=== PATIENT | female | born 1980 | race Caucasian/White ===

== ENCOUNTER 2021-05-05 10:43 | Outpatient (CLI) | payer OTHER, SELFPAY ==
--- NOTE | ~2021-05-05 | MM_ITS ---
EXAMINATION: MM screening sapp[facility] BI w marie HISTORY: Screening mammogram TECHNIQUE: Craniocaudal and mediolateral oblique 3-D tomosynthesis images were obtained and synthetic 2-D images were generated. CAD analysis was submitted and interpreted. COMPARISON: No prior mammogram is available for comparison at this institution. BREAST PARENCHYMAL COMPOSITION: The breasts are heterogeneously dense, which may obscure small masses . FINDINGS: There is no suspicious mass, calcification, or architectural distortion to suggest malignan cy in either breast. IMPRESSION: 1. No mammographic evidence of malignancy. 2. Recommend routine screening mammography in one year. BI-RADS Category 1: Negative Reviewed, dictated and finalized at location A.
== END 2021-05-05 10:44 | disposition home or self-care (01) ==
LOC: ANHIMG 10:46
PROVIDERS: PCP Family Medicine; Visit Provider Physician Assistant Medical
DX: Z12.31 Encounter for screening mammogram for malignant neoplasm of breast (principal)
CPT/HCPCS: 77063; 77067

== ENCOUNTER 2021-12-20 08:04 | Emergency (ER) | payer OTHER, SELFPAY ==
--- NOTE | ~2021-12-20 | CT_ITS ---
EXAMINATION: CT abdomen pelvis wo con DATE: 12/20/2021 08:35 INDICATION: Left flank pain. TECHNIQUE: Computed tomography (CT) of the abdomen and pelvis was performed without intravenous contr ast. Automated exposure control and iterative reconstruction technique were employed. The dose-length product was 389.98 mGy-cm. COMPARISON: CT abdomen and pelvis 12/29/2016 FINDINGS: The visualized portions of the lung bases posteriorly mild atelectasis. No pleural effusion . The heart size is normal. No pericardial effusion. The liver, gallbladder, spleen, pancreas, adrena l glands, and kidneys are normal. There is no urolithiasis. There are no dilated loops of bowel. The appendix is normal. There are no pathologically enlarged lymph nodes. There is no free intraperitonea l fluid. There is mild lumbar spondylosis. IMPRESSION: 1. No etiology for the patient's symptoms. Reviewed, dictated and finalized at location A.
--- NOTE | ~2021-12-20 | US_ITS ---
EXAMINATION: US pelvic complete DATE: 12/20/2021 09:20 INDICATION: Left lower quadrant abdominal pain. TECHNIQUE: Multiple transabdominal sonographic images of the pelvis were obtained. COMPARISON: CT abdomen and pelvis 12/20/2021 FINDINGS: The uterus measures 9.8 x 5.9 x 7.1 cm. There is no free fluid in the pelvis. The endometrial complex measures 9 mm in thickness. The right ovary measures 2.7 x 1.9 x 2.1 cm. The left ovary measures 2.4 x 1.5 x 2.6 cm. There is normal vascular flow in the ovaries. IMPRESSION: 1. Normal pelvis. Reviewed, dictated and finalized at location A. IMPRESSION: 1. Normal pelvis.
[2021-12-20 08:08] VITALS: BP 180/92; PULSE 82; RESP 18; TEMP 36.2; O2SAT 99
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
[2021-12-20] MEDS: ACETAMINOPHEN 500 MG TABLET 1000 MG PO (08:23)
[2021-12-20] MEDS: SODIUM CHLORIDE 0.9% IV 1,000 ML 999 ML IV CONT (08:23)
[2021-12-20] MEDS: ONDANSETRON INJ 4 MG/2 ML VIAL IV PUSH (08:24)
[2021-12-20 08:33] LABS: Basophils Absolute Auto 0.1 K/mm3 (0.0-0.1); Basophils Percent Auto 0.9 % (0.2-1.2); Eosinophils Absolute Auto 0.1 K/mm3 (0-0.3); Eosinophils Percent Auto 0.8 % (0-4.4); Hematocrit 41.4 % (37.0-47.0); Hemoglobin 13.3 g/dL (12.0-15.0); Immature Granulocyte Absolute 0.02 K/mm3 (0.00-0.031); Immature Granulocyte Percent A 0.3 % (0-0.5); Lymphocytes Absolute Auto 1.68 K/mm3 (0.9-3.2); Lymphocytes Percent Auto 21.3 % (18.3-44.2); Mean Corpuscular HGB Conc 32.1 g/dl (32-36); Mean Corpuscular Hemoglobin 29.4 pg (26-34); Mean Corpuscular Volume 91.4 fl (80-100); Mean Platelet Volume 10.6 fl (7.4-10.4); Monocytes Absolute Auto 0.6 K/mm3 (0.1-0.6); Monocytes Percent Auto 7.2 % (2.6-8.5); Neutrophils Absolute Auto 5.5 K/mm3 (1.3-6.7); Neutrophils Percent Auto 69.5 % (45.5-73.1); Platelet Count Result 272 k/mm3 (150-375); Red Blood Count 4.53 M/mm3 (4.2-5.4); Red Cell Distribution Width 12.6 % (11.5-14.5); White Blood Count 7.9 K/mm3 (4.5-10.0)
[2021-12-20 08:47] LABS: Alanine Aminotransferase 18 U/L (6-35); Albumin Level 4.6 g/dL (3.5-5.1); Alkaline Phosphatase 81 U/L (38-126); Anion Gap 15 mmol/L (8-16); Aspartate Amino Transferase 22 U/L (14-36); Bilirubin,Total 0.4 mg/dL (0.2-1.3); Blood Urea Nitrogen 17 mg/dL (7-17); Calcium 8.8 mg/dL (8.4-10.2); Carbon Dioxide 25 mmol/L (22-30); Chloride 101 mmol/L (98-107); Estimated CRCL calculation 84 ml/min; Estimated Glomerular Filt Rate > 60; Glucose 112 mg/dL (65-110); Lipase 51 U/L (23-300); Potassium 3.6 mmol/L (3.4-5.0); Sodium 141 mmol/L (137-145)
[2021-12-20 09:01] LABS: Appearance Urine Clear (Clear); Bilirubin Urine 1+ (Negative); Blood Urine Negative (Negative); Color Urine Yellow (Yellow); Glucose Urine UA Negative (Negative); Ketones Urine Trace mg/dL (Negative); Leukocyte Esterase Ur Negative LEU/UL (Negative); Nitrate Urine Negative (Negative); Protein Urine Trace mg/dL (Negative); Urobilinogen Urine 0.2 mg/dL (<2.0)
[2021-12-20 09:12] LABS: Hyaline Casts Urine 30-49 /lpf; Mucus Urine Moderate /lpf; RBC Urine 0-2 /hpf (0-2); Squamous Epithelial Cell Urine Rare /hpf (Few)
[2021-12-20 09:13] LABS: Add Urine Microscopic? YES
--- NOTE | 2022-01-03 09:49 | PC.NURSE ---
LATE ENTRY This note is being entered to document information to the patient's record. The following information was omitted on [12/20/21], by [Shanice SAMUEL]. NS stop time is 0915am.
== END 2021-12-20 10:05 | disposition home or self-care (01) ==
PROVIDERS: Emergency Provider Emergency Medicine; PCP Family Medicine
DX: N93.8 Other specified abnormal uterine and vaginal bleeding (principal); I10 Essential (primary) hypertension; Z87.440 Personal history of urinary (tract) infections; Z87.442 Personal history of urinary calculi; Z77.22 Contact with and (suspected) exposure to environmental tobacco smoke (acute) (chronic)
CPT/HCPCS: 36415; 74176; 76856; 80053; 81001; 81025; 83690; 85025; 87077; 87086; 87088; 96361; 96374; 99284; A9270; J2405; J7030

== ENCOUNTER 2022-03-19 19:15 | Emergency (ER) | payer OTHER, SELFPAY ==
[2022-03-19] VITALS (7 sets, daily range): BP systolic 157–179; BP diastolic 99–116; PULSE 70–92; RESP 11–19; TEMP 36.3; O2SAT 97–100
--- NOTE | ~2022-03-19 | XR_ITS ---
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 RESULT: Lines, tubes, and devices: None. Lungs and pleura: Clear. Cardiomediastinal silhouette: Stable. Other: No acute osseous or upper abdominal finding. IMPRESSION: No acute cardiopulmonary process. Reviewed, dictated and finalized at location K. L PADDER
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
--- NOTE | 2022-03-19 19:40 | ECG_ITS ---
Measurements Intervals [place] Rate: 75 P: 47 DE: 161 QRS: 3 QRSD: 88 T: -11 QT: 426 QTc: 477 Interpretive Statements SINUS RHYTHM BORDERLINE T WAVE ABNORMALITY- INFERIOR LEADS BORDERLINE ECG NO PREVIOUS ECG AVAILABLE FOR COMPARISON Electronically Signed On 03-20-2022 6:46:54 CUTTING INSPECTOR by Juan Kaplan D.O.
[2022-03-19 19:54] LABS: Basophils Absolute Auto 0.1 K/mm3 (0.0-0.1); Basophils Percent Auto 0.8 % (0.2-1.2); Eosinophils Absolute Auto 0.1 K/mm3 (0-0.3); Eosinophils Percent Auto 1.4 % (0-4.4); Hematocrit 41.4 % (37.0-47.0); Hemoglobin 13.4 g/dL (12.0-15.0); Immature Granulocyte Absolute 0.03 K/mm3 (0.00-0.031); Immature Granulocyte Percent A 0.3 % (0-0.5); Mean Corpuscular HGB Conc 32.4 g/dl (32-36); Mean Corpuscular Hemoglobin 29.2 pg (26-34); Mean Corpuscular Volume 90.2 fl (80-100); Mean Platelet Volume 10.6 fl (7.4-10.4); Monocytes Absolute Auto 0.6 K/mm3 (0.1-0.6); Monocytes Percent Auto 6.6 % (2.6-8.5); Neutrophils Absolute Auto 5.9 K/mm3 (1.3-6.7); Neutrophils Percent Auto 67.9 % (45.5-73.1); Platelet Count Result 325 k/mm3 (150-375); Red Blood Count 4.59 M/mm3 (4.2-5.4); Red Cell Distribution Width 12.6 % (11.5-14.5); White Blood Count 8.7 K/mm3 (4.5-10.0)
[2022-03-19] MEDS: SODIUM CHLORIDE 0.9% IV 1,000 ML 999 ML IV CONT (20:13)
[2022-03-19] MEDS: KETOROLAC 15 MG/ML VIAL (*BKC) IV PUSH (20:13)
[2022-03-19] MEDS: PROCHLORPERAZINE EDISYLATE 10 MG/2 ML VIAL IV PUSH (20:14)
[2022-03-19] MEDS: diphenhydrAMINE HCl INJ 50 MG/ML VIAL 25 MG IV PUSH (20:14)
[2022-03-19 21:42] LABS: Alanine Aminotransferase 18 U/L (6-35); Albumin Level 3.8 g/dL (3.5-5.1); Alkaline Phosphatase 78 U/L (38-126); Anion Gap 6 mmol/L (8-16); Aspartate Amino Transferase 22 U/L (14-36); Bilirubin,Total 0.4 mg/dL (0.2-1.3); Blood Urea Nitrogen 12 mg/dL (7-17); Calcium 7.9 mg/dL (8.4-10.2); Carbon Dioxide 24 mmol/L (22-30); Chloride 110 mmol/L (98-107); Estimated CRCL calculation 78 ml/min; Estimated Glomerular Filt Rate > 60; Glucose 97 mg/dL (65-110); Potassium 3.5 mmol/L (3.4-5.0); Sodium 140 mmol/L (137-145)
[2022-03-19 21:53] LABS: Troponin I < 0.012 ng/mL (0.000-0.034)
== END 2022-03-19 22:26 | disposition home or self-care (01) ==
PROVIDERS: Emergency Provider Emergency Medicine; PCP Family Medicine
DX: R51.9 Headache, unspecified (principal); I10 Essential (primary) hypertension; E83.51 Hypocalcemia; Z87.440 Personal history of urinary (tract) infections; Z77.22 Contact with and (suspected) exposure to environmental tobacco smoke (acute) (chronic); R94.31 Abnormal electrocardiogram [ECG] [EKG]
CPT/HCPCS: 36415; 71046; 80053; 84484; 85025; 93005; 96361; 96374; 96375; 99284; J0780; J1200; J1885; J7030

== ENCOUNTER 2024-02-07 15:30 | Emergency (ER) | payer BC, SELFPAY ==
[2024-02-07] VITALS (10 sets, daily range): BP systolic 132–162; BP diastolic 86–109; PULSE 69–85; RESP 10–111; TEMP 36.7; O2SAT 98–100
--- NOTE | ~2024-02-07 | CT_ITS ---
EXAMINATION: CT brain wo con DATE: 02/07/2024 15:49 INDICATION: Migraine headache. Blurry vision. TECHNIQUE: Computed tomography (CT) of the head was performed without intravenous contrast. The mA wa s adjusted according to patient size. Iterative reconstruction technique was employed. The dose-lengt h product was 605.33 mGy-cm. COMPARISON: Head CT 07/15/2017 FINDINGS: There is no intracranial hemorrhage, acute infarction, or abnormal intracranial mass lesion . The ventricles are normal in size. The orbits are normal. The paranasal sinuses are clear. The mast oid air cells are normal. IMPRESSION: 1. Normal brain. Reviewed, dictated and finalized at location A. DIRECTOR IMPRESSION: 1. Normal brain.
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
[2024-02-07] MEDS: KETOROLAC 30 MG/ML VIAL (*BKC) IV PUSH (17:01)
[2024-02-07] MEDS: diphenhydrAMINE HCl INJ 50 MG/ML VIAL 25 MG IV PUSH (17:01)
[2024-02-07] MEDS: METOCLOPRAMIDE HCL INJ 10 MG/2 ML VIAL IV PUSH (17:01)
[2024-02-07] MEDS: SODIUM CHLORIDE 0.9% IV 1,000 ML 999 ML IV CONT (17:01)
[2024-02-07] MEDS: ACETAMINOPHEN 500 MG TABLET 1000 MG PO (17:01)
== END 2024-02-07 18:44 | disposition home or self-care (01) ==
PROVIDERS: Emergency Provider Physician Assistant; PCP Physician Assistant
DX: G43.909 Migraine, unspecified, not intractable, without status migrainosus (principal); I10 Essential (primary) hypertension; Z87.891 Personal history of nicotine dependence; Z79.899 Other long term (current) drug therapy
CPT/HCPCS: 70450; 96361; 96374; 96375; 99284; A9270; J1200; J1885; J2765; J7030

== ENCOUNTER 2024-12-29 11:37 | Outpatient (CLI) | payer OTHER, SELFPAY ==
--- NOTE | 2024-12-29 12:00 | ECG_ITS ---
Test Date: 2024-12-29 12:11:09 Measurements Intervals [place] Rate: 80 P: 52 SC: 153 QRS: 4 QRSD: 81 T: -5 QT: 364 QTc: 421 Interpretive Statements SINUS RHYTHM LOW QRS VOLTAGE IN PRECORDIAL LEADS [QRS DEFLECTION < 1.0 mV IN CHEST LEADS] No previous ECG available for comparison Electronically Signed On 12-29-2024 18:06:50 CONFIGURATION MANAGER by Jasmine Agustin M.D.
--- OUTSIDE RECORDS SUMMARY | 2024-12-29 12:12 | XMS_ITS | Encounter Summary ---
Author Organization [employer] Address [address] [place] [address] Care Team Providers Care Manager Science Name Role Phone Isaías Alex MD Primary Care Provider [phone] Encounter Details Date Type Department Care Team (Latest Contact Info) Description 05/24/2004 Outpatient Historical [facility] PATIENT IN A BED Chris, Jarett Norris MD [address] [place] [address] Ketan Rodriguez MD [address] [place] [address] OTHER CURR COND-ANTEPARTUM (Primary Dx) Social History Tobacco Use Types Packs/Day Years Used Date Smoking Tobacco: Never Assessed Comments Unknown Sex and Gender Information Value Date Recorded Sex Assigned at Not on file 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 [address] PCP - General Family Practice 01/31/16 documented as of this encounter
--- OUTSIDE RECORDS SUMMARY | 2024-12-29 12:12 | XMS_ITS | Encounter Summary ---
Author Organization [employer] Address 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 Cloudy(A) Clear INTERFACE SYSTEM SPECIFIC GRAVITY UA 1.005 1.001 - 1.035 INTERFACE SYSTEM PH UA 7.0 5.0 - 8.0 INTERFACE SYSTEM LEUKOCYTE ESTERASE UA 1+(A) Negative INTERFACE SYSTEM NITRITE UA Negative Negative INTERFACE SYSTEM PROTEIN UA Negative Negative INTERFACE SYSTEM GLUCOSE UA Negative Negative INTERFACE SYSTEM KETONES UA Negative Negative INTERFACE SYSTEM UROBILINOGEN UA <1 <1 EU INTE RFACE SYSTEM BILIRUBIN UA Negative Negative INTERFA CE SYSTEM BLOOD UA Negative Negative INTERFACE SYSTEM WBC UA 1 0 - 5 /HPF INTERFACE SYSTEM RBC UA <1 0 - 4 /HPF INTERFACE SYSTEM BACTERIA UA 2+(A) None Seen /HPF INTERFACE SYSTEM EPITHELIAL CELLS, URINE 5-10 /HPF INTERFACE SYSTEM TRANSITIONAL EPI 0-2 /HPF INT ERFACE SYSTEM 07/25/2004 11:3 0 AM CDT us Ketan Rodriguez MD URINE ORDERABLES Final Result INTERFACE SYSTEM Refer to clinic/hospital department documented in this encounter Visit Diagnoses Diagnosis Threatened premature labor, antepartum(644.03)- Primary Threatened premature labor, antepartum documented in this encounter Care Teams Receiving Associate Store Relationship Specialty Start Date End Date Isaías Alex MD [address] [place] [address] PCP - General Family Practice 01/31/16 documented as of this encounter
--- OUTSIDE RECORDS SUMMARY | 2024-12-29 12:12 | XMS_ITS | Encounter Summary ---
Author Organization [employer] Address 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 Cloudy(A) Clear INTERFACE SYSTEM SPECIFIC GRAVITY UA 1.005 1.001 - 1.035 INTERFACE SYSTEM PH UA 7.0 5.0 - 8.0 INTERFACE SYSTEM LEUKOCYTE ESTERASE UA 2+(A) Negative INTERFACE SYSTEM NITRITE UA Negative Negative INTERFACE SYSTEM PROTEIN UA Negative Negative INTERFACE SYSTEM GLUCOSE UA Negative Negative INTERFACE SYSTEM KETONES UA Negative Negative INTERFACE SYSTEM UROBILINOGEN UA <1 <1 EU INTE RFACE SYSTEM BILIRUBIN UA Negative Negative INTERFA CE SYSTEM BLOOD UA Negative Negative INTERFACE SYSTEM WBC UA 5 0 - 5 /HPF INTERFACE SYSTEM RBC UA 1 0 - 4 /HPF INTERFACE SYSTEM BACTERIA UA 2+(A) None Seen /HPF INTERFACE SYSTEM EPITHELIAL CELLS, URINE 5-10 /HPF INTERFACE SYSTEM 07/31/2004 11:2 2 PM CDT us Ketan Rodriguez MD URINE ORDERABLES Final Result INTERFACE SYSTEM Refer to clinic/hospital department documented in this encounter Visit Diagnoses Diagnosis Threatened premature labor, antepartum(644.03)- Primary Threatened premature labor, antepartum documented in this encounter Care Teams Source Inspector Relationship Specialty Start Date End Date Isaías Alex MD [address] [place] [address] PCP - General Family Practice 01/31/16 documented as of this encounter
--- OUTSIDE RECORDS SUMMARY | 2024-12-29 12:12 | XMS_ITS | Encounter Summary ---
Author Organization [employer] Address [address] [place] [address] Care Team Providers Care Litigation Secretary Name Role Phone Isaías Alex MD Primary Care Provider [phone] Encounter Details Date Type Department Care Team (Latest Contact Info) Description 06/21/2004 Outpatient Historical 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 [address] PCP - General Family Practice 01/31/16 documented as of this encounter
--- OUTSIDE RECORDS SUMMARY | 2024-12-29 12:12 | XMS_ITS | Encounter Summary ---
Author Organization [employer] [facility] Address 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 [address] PCP - General Family Practice 01/31/16 documented as of this encounter
--- OUTSIDE RECORDS SUMMARY | 2024-12-29 12:12 | XMS_ITS | Encounter Summary ---
Author Organization [employer] Address 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 [phone] PCP - General Family Practice 01/31/16 documented as of this encounter
--- OUTSIDE RECORDS SUMMARY | 2024-12-29 12:12 | XMS_ITS | Data Portability ---
Author Organization [facility] Address [address] [place] [address] [place] [address] Care Team Providers Care Histologic Aide Name Role Phone RIOSCITLALLIPHOEBEJASMIN Primary Care Provider [phone] Assessment No assessment recorded. Plan of Treatment Reminders Order Date Submit Date Provider Last Modified By Organization Details Last Modified Time Details Appointments SURG PRE OP 2024 09:15A Rasheeda WEAVER MD Not available Not available Not available Robotic TLH 2024 01:30P Rasheeda WEAVER MD Not available Not available Not available SURG POST OP 2024 09:45A Rasheeda WEAVER MD Not available Not available Not available Lab CT + NG + TV, RNA, unspecifi ed specimen 2024 025 [facility] (Lab), [address], [place], [address], 12/16/2024 13:26:39 Referral None recorded. Procedures None recorded. Surgeries robotic assisted hysterect tunde with salpingec gaye (SURG) 2024 025 [id number], [address], [place], [address], 11/17/2024 12:25:00 Imaging US, pelvis 2024 025 [email or web address] [place], [facility] [address], [address], [place], [address], 10/23/2024 12:01:00 US, transvagi nal 2024 025 [email or web address] [place], [address], [place], [address], 10/23/2024 12:01:00 Medication Orders tranexami c acid 650 mg tablet 2024 025 [facility] [address], [address] [place] [address], [address], 10/28/2024 16:02:13 ibuprofen 600 mg tablet 2024 025 [facility], [address] [place] [address], [address], 11/16/2024 10:20:23 oxycodone -acetamin ophen 5 mg-325 mg tablet 2024 025 [facility] [address], [address] [place] [address], [address], 11/16/2024 10:20:25 Xanax 0.5 mg tablet 2024 025 [facility] [address], [address] [place] [address], [address], 11/16/2024 10:20:22 ondansetr on 8 mg disintegr ating tablet 2024 [facility] [address], [address] [place] [address], [address], 11/16/2024 10:20:30 Patient TargetsNo targets recorded. Patient InstructionsNo instructions recorded. Reason for Referral None Reported. Results Created Date Observation Date Name Description Value Unit Range Abnormal Flag Note LastModifiedBy Organization Detail LastModifiedTime 10/06/1910/05/2024 IMAGE GUIDE D PAP AND HPV REGAR DLESS image guided Pap, HPV regardless of Pap result SEE RESULT S BELOW abnormal CASE REPOR T: Cytol ogy Gynec ologi beltran Repor t Case: [id number] Autho cintia g Provi sivlano: Dermo dy, Blanquita , ANP, COMMERCIAL AGENT Colle cted: 10/05 1507 Order ing Locat ion: [place] Patho logy Recei freddie: 10/06 0146 First Soham n: Maris Wong, MARIELOS Patho logis t: January Santoyo MD Speci men: Soham frankel Pap - Image d, Cervi x STATE MENT OF ADEQU ACY: Satis facto ry for evalu ation Trans forma tion zone compo nent prese nt ----- ----- ----- ----- ----- ----- ----- ----- ----- ----- ----- ----- ----- ----- ----- ----- ----- ---- FINAL DIAGN OSIS: Epith elial Cell Abnor malit y, Squam ous Cell: Atypi beltran Squam ous Cells of Undet ermin ed Grace parry ce (ASC- US). Trich omona s vagin denisa is prese nt. Elect reji rosario by January Santoyo MD on 2024 at 1359 CDT ----- ----- ----- ----- ----- ----- ----- ----- ----- ----- ----- ----- ----- ----- ----- ----- ----- ---- HPV RESUL TS: HPV mRNA E6/E7 : Posit maria fernanda - HPV mRNA Detec tab HPV GENOT YPE 16 (CHANTEL) : Not Detec tab HPV GENOT YPE 18/45 (CHANTEL) : Not Detec tab NOTE: This high risk HPV mRNA assay detec ts fourt een high- risk HPV types (16, 18, 31, 33, 35, 39, 45, 51, 52, 56, 58, 59, 66, 68) witho ut diffe renti ation . This assay can diffe renti ate HPV 16 from HPV 18/45 , but does not diffe renti ate betwe en HPV 18 and HPV 45. A negat maria fernanda HPV 16, 18/45 genot ype assay resul t does not exclu de the possi bilit y of cytol ogic abnor malit ies or of futur e or under lying VISHNU 1, VISHNU 3 or cance r. COMME NT: This speci men was revie wed by a Cytot echno logis t and/o r Patho logis t (as indic ated in this repor t) after evalu ation using the Thinp rep Imagi ng Syste m. CLINI BELTRAN INFOR MATIO N: Menst rual Statu s: LMP (if appli cable ): 2024 Clini beltran Histo ry/Pr eviou s Pap: Type of Neopl tova (if appli cable ): Signi fican t Clini beltran Findi ngs: Other Histo ry: Hormo emily (if appli cable ): ROMANA ARAYAD FOLLO W-UP: Follo w up as warra nted, based on curre nt guide lines and indiv idual patie nt consi derat ions. Not Available [facility] (Lab) [address], [place], [address], 10/07/2024 18:09:07 11/11/1911/10/2024 SURGI BELTRAN PATHO LOGY surgical pathology SEE RESULT S BELOW CASE REPOR T: Surgi beltran Patho logy Repor t Case: [id number] Autho cintia maravilla Provi silvano: Brandan Appiah MD Colle cted: 11/10 1456 Order ing Locat ion: [place] Patho logy Recei freddie: 11/11 0458 Patho logis t: Jaret Cuenca MD Speci men: ranjeet Muir ----- ----- ----- ----- ----- ----- ----- ----- ----- ----- ----- ----- ----- ----- ----- ----- ----- ---- FINAL DIAGN OSIS: Endom etriu m, biops y: -Diso rdere d proli ferat maria fernanda endom etriu m. -No endom etria l hyper plasi a or malig nant tumor ident ified . Elect reji rosario by Jaret Cuenca MD on 2024 at 1031 CDT ----- ----- ----- ----- ----- ----- ----- ----- ----- ----- ----- ----- ----- ----- ----- ----- ----- ---- CLINI BELTRAN INFOR MATIO N: Thick ened Endom etria l Emani g MICRO SCOPI C DESCR IPTIO N: A micro scopi c exami natio n was perfo rmed. A porti on of the testi ng proce ss was perfo rmed at [facility] NMDP1 11. Digit al imagi ng was used in the diagn ostic asses sment of this case. GROSS DESCR IPTIO N: A. Endom etriu m. The speci men is label ed with the patie nt's name, demog raphi cs and EMB. Recei freddie in forma janel is a 3.0 x 2.0 x 0.2 cm aggre gate of tamar-b augusta tissu e mixed with blood clot. The entir e speci men is submi tted in 2 casse ttes. Gross ed by Cony Bhatti Not Available [facility] (Lab) [address], [place], [address], 11/12/2024 11:41:01 11/11/1911/12/2024 CERVI X/END OCERV IX cervical histology LSIL abnormal Not Available [facility] [employer] ([facility]) [address] [address], [place], [address], 11/12/2024 13:31:05 11/11/19 25 11/12/2024 CERVI X/END OCERV IX endocervical brushing histology Negati ve normal Not Available [facility] ([facility]) [address], [place], [address], 11/12/2024 13:31:05 11/11/19 25 11/12/2024 CERVI X/END OCERV IX results GROSS ING INFOR MATIO N: (B1) CERVI X Recei freddie in 10 % neutr al buffe red forma janel on a soft biops y brush is a 0.4 cm aggre gate of red-b rown mater ial. Speci men is filte red and total ly submi tted. B1 DIAGN OSIS: (B1) CERVI X Low-g rade squam ous intra epith elial lesio n (LSIL ), VISHNU 1. Trans forma tion zone mucos a not prese nt. MILD CERVI BELTRAN DYSPL TOVA (N87. 0) GROSS ING INFOR MATIO N: (A1) ENDOC ERVIX Recei freddie in 10 % neutr al buffe red forma janel on a soft ecc brush is a 1.2 cm aggre gate of mucus and red brown mater ial. Speci men is filte red and total ly submi tted. A1 DIAGN OSIS: (A1) ENDOC ERVIX Benig n ectoc ervic al and endoc ervic al tissu e. No intra epith elial lesio n. UNSP ABNOR MAL CYTOL OG FINDI NGS IN SPECM N FROM CERVI X UTERI (R87. 619) Not Available [facility] ([facility]) [address], [place], [address], 11/12/2024 13:31:05 12/16/1912/15/2024 CT/GC AND TRICH OMONA S VAGIN DENISA (RRNA ), URINE chlamydia trachomatis, PCR Negati ve negati ve Not Available [facility] (Lab) [address], [place], [address], 12/16/2024 13:26:39 12/16/19 25 12/15/2024 CT/GC AND TRICH OMONA S VAGIN DENISA (RRNA ), URINE neisseria gonorrhoeae, PCR Negati ve negati ve Not Available [facility] (Lab) [address], [place], [address], 12/16/2024 13:26:39 12/16/19 25 12/15/2024 CT/GC AND TRICH OMONA S VAGIN DENISA (RRNA ), URINE trichomonas vaginalis ribosomal RNA (rrna) [place] [address] 49_CL _SOUR CETVG : Urine - Bladd er Not Available [facility] (Lab) [address], [place], [address], 12/16/2024 13:26:39 10/23/19 25 10/22/2024 US, pelvi s No observ ation record ed. [email or web address] [place] [address], [place], [address], 10/22/2024 12:57:31 10/23/19 25 10/22/2024 US, trans vagin al No observ ation record ed. [email or web address] [place] [address], [place], [address], 10/22/2024 12:57:40 10/23/19 25 10/22/2024 US, pelvi s No observ ation record ed. NANETTE Caballero [address] [place] [address], [place], [address], 10/26/2024 17:25:44 Result Notes None recorded. Procedures Surgical History Date Name Laterality Status Provider Name and Address Organization Details Recorded Time 11/11/19 25 Colposcopy completed LEATHA WHITLEY MD [address], [place], [address], [place] [facility] 11/10/2024 14:55:42 11/11/19 25 Endometrial Biopsy completed LEATHA WHITLEY MD [address] [place], [address], [facility] 11/10/2024 14:57:50 11/11/19 25 Colposcopy completed Swetha [facility] 11/16/2024 10:14:07 11/11/19 25 Colposcopy completed [facility] 11/16/2024 10:15:05 10/06/19 25 Date of Last Pap Smear completed Mile Handjc [facility] 10/28/2024 09:19:26 09/22/19 25 Dilation and Curettage completed [facility] 10/05/2024 09:43:54 12/20/19 23 Date of Last Mammogram completed [facility] 10/05/2024 09:43:54 LEEP completed [facility] 10/05/2024 09:43:54 Tubal Ligation completed [facility] 10/05/2024 09:43:54 Ovarian Cystectomy completed [facility] 10/05/2024 09:43:54 Imaging Results None recorded. Procedure Notes None recorded. Medical Equipment None Reported. Allergies Allergen ID Allergen Name Allergen Category Reaction Reaction Severity Criticality Documentation Date Start Date Code Code System Note Provider Name and Address Organization Details Recorded Time 63483 adhesive tape environme nt,medica tion Not available Not available Not available 10/05/2024 [facility] 09:44:10 Medications Name Sig Start Date Stop Date Status Note LastModified by Organization Details LastModified Time metformin 500 mg tablet TAKE 1 TAB EVERYDAY WITH MEALS FOR 1 WEEK, THEN TAKE 1 TAB TWICE A DAY WITH MEALS FOR ONE WEEK, THEN TAKE 2 TABS TWICE A DAY WITH MEALS 10/05 completed Not Available Not Available Not Available Xanax 0.5 mg tablet Take 1 tablet 1 hour prior to procedure 2024 active Not Available Not Available Not Avai lable trazodone 50 mg tablet TAKE 1 TABLET BY MOUTH AT BEDTIME FOR DIFFICULT Y SLEEPING active Not Available Not Available No t Available rizatriptan 10 mg tablet TAKE 1 TABLET BY MOUTH NEEDED FOR MIGRAINE CAN REPEAT DOSE ONCE AFTER 2 HOURS active Not Available Not Available No t Available metronidazo le 500 mg tablet Take 1 tablet every 12 hours by oral route for 7 days. 11/03 completed Not Available Not Available Not Available ondansetron 8 mg disintegrat ing tablet TAKE 1 TABLET BY MOUTH 1 HOUR PRIOR TO PROCEDURE 11/16 completed Not Available Not Available Not Available oxycodone-a cetaminophe n 5 mg-325 mg tablet TAKE 1 TABLET BY MOUTH 1 HOUR PRIOR TO PROCEDURE 11/16 completed Not Available Not Available Not Available hydrochloro thiazide 25 mg tablet TAKE 1 TABLET BY MOUTH ONCE DAILY IN THE MORNING active Not Available Not Available No t Available ibuprofen 600 mg tablet TAKE 1 TABLET BY MOUTH 1 HOUR PRIOR TO PROCEDURE 11/16 completed Not Available Not Available Not Available lisinopril 40 mg tablet TAKE 1 TABLET BY MOUTH ONCE DAILY AFTER A MEAL active Not Available Not Available No t Available fluticasone propionate 50 mcg/actuati on nasal spray,suspe nsion USE 1 SPRAY(S) IN EACH NOSTRIL ONCE DAILY DIRECTED active Not Available Not Available No t Available nortriptyli ne 50 mg capsule TAKE 1 CAPSULE BY MOUTH ONCE DAILY IN THE MORNING 11/16 completed Not Available Not Available Not Available atomoxetine 40 mg capsule TAKE 1 CAPSULE BY MOUTH IN THE MORNING FOR INATTENTI ON active Not Available Not Available No t Available hydrochloro thiazide 10/05 completed Not Available Not Available Not Available liraglutide 0.6 mg/0.1 mL (18 mg/3 mL) subcutaneou s pen injector INJECT 1.8 MG SUBCUTANE OUSLY ONCE DAILY active Not Available Not Available No t Available tranexamic acid 650 mg tablet TAKE 2 TABLETS BY MOUTH THREE TIMES DAILY FOR 5 DAYS active Not Available Not Available No t Available Vitals Date Recorded Body height Body mass index (BMI) Body weight Systolic And Diastolic Provider Name and Address Organization Details Last Updated DateTime 10/28/2024 165.1 cm 33.8 kg/m2 58066.25 g 109/75 mm[Hg] Mile Elise [facility] 10/28/2024 09:18:41 Date Recorded Body height Body mass index (BMI) Body weight Systolic And Diastolic Provider Name and Address Organization Details Last Updated DateTime 11/10/2024 165.1 cm 33.1 kg/m2 61332.88 g 110/76 mm[Hg] Mile Elise [facility] 11/10/2024 14:38:35 Date Recorded Body height Body mass index (BMI) Body weight Systolic And Diastolic Provider Name and Address Organization Details Last Updated DateTime 11/16/2024 165.1 cm 34.1 kg/m2 00729.44 g 122/82 mm[Hg] Swetha Martino [facility] 11/16/2024 10:12:35 Date Recorded Body height Body mass index (BMI) Body weight Systolic And Diastolic Provider Name and Address Organization Details Last Updated DateTime 12/15/2024 165.1 cm 33.4 kg/m2 59089.35 g 121/85 mm[Hg] Laura Vera [facility] 12/15/2024 09:35:50 Social History Question Answer Notes LastModified by Organizat ion Details LastModified Time Tobacco Smoking Status Never Smoker Mary Colladoleah ortega, [facility] 10/05/2024 09:47:57 Do You Have An Advance Directive? No Information n ot available 10/05/2024 Are You Blind Or Do You Have Difficulty Seeing? No [email or web address] Information n ot available 10/05/2024 What Is Your Level Of Caffeine Consumption? Moderate [email or web address] Information not available 10/05/2024 How Much Tobacco Do You Chew? None [email or web address] Information not available 10/05/2024 In The 14 Days Before Symptom Onset, Have You Had Close Contact With A Laboratory-confirm ed COVID-19 While That Case Was Ill? No [email or web address] Information n ot available 10/05/2024 In The 14 Days Before Symptom Onset, Have You Had Close Contact With A Person Who Is Under Investigation For COVID-19 While That Person Was Ill? No [email or web address] Information not available 10/05/2024 Have You Been To An Area Known To Be High Risk For COVID-19? No [email or web address] Information not available 10/05/2024 Are You Deaf Or Do You Have Serious Difficulty Hearing? No [email or web address] Information not available 10/05/2024 What Type Of Diet Are You Following? REGULAR [email or web address] Information n ot available 10/05/2024 What Is The Highest Grade Or Level Of School You Have Completed Or The Highest Degree You Have Received? HK49123-6 [email or web address] Information not available 10/05/2024 Are There Any Guns Present In Your Home? No [email or web address] Information not available 10/05/2024 Do You Use Protection During Sex? Usually Information not available 10/05/2024 Do You Use Your Seat Belt Or Car Seat Routinely? Yes [email or web address] Information not available 10/05/2024 Do You Have Smoke And Carbon Monoxide Detectors In Your Home? Yes [email or web address] Information not available 10/05/2024 How Much Tobacco Do You Smoke? No [email or web address] Information not available 10/05/2024 Do You Use Sunscreen Routinely? Yes [email or web address] Information not available 10/05/2024 Have You Used IV Drugs? No [email or web address] Information not available 10/05/2024 Sex: Unknown Functional Status Question Answer Note LastModified by Organizat ion Details LastModified Time Do you use any illicit or recreational drugs? No [email or web address] Information not available 10/05/2024 What is your level of alcohol consumption? Occasional [email or web address] Information not available 10/05/2024 Are you able to walk independently without assistance or assistive devices? 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 Occasional [email or web address] Information not available 10/05/2024 Mental Status Question Answer Note LastModified by Organization D etails LastModified Time Do you feel stressed (tense, restless, nervous, or anxious, or unable to sleep at night)? [id number] Information not available 10/05/2024 Family History Relationship Description Onset Age of this Age Resolved Age Notes LastModified by Organization Details LastModified Time Paternal Grandmother Heart disease Not available 2024 09:43:54 Maternal Grandmother Hypertensive disorder [email or web address] Not available 2024 09:43:54 Maternal Grandmother Heart disease [email or web address] Not available 2024 09:43:54 Medical History Condition Response Allergies (Food, seasonal, environmental ) N Other N Breast Cancer N Drug/Latex Allergies/Reactions N Blood Transfusion N Dermatologic Disorders N Lung Disease N Defects or Inherited Disease N Breast Problem N Gestational Diabetes N Hematologic disorders N Anesthesia Complications N History of STI Y Deep Vein Thrombosis N Polycystic ovary syndrome Y Anxiety Disorder N Autoimmune disease N Arthritis N Infertility N Polyps N Acid Reflux (GERD) N History of abnormal pap Y Cancer N Stroke N Varicosities N Neurologic/Epilepsy Y Endometriosis N High Cholesterol N Headaches Y Fibromyalgia N Kidney Disease N Heart Problems N Kidney or Bladder Problems N Thyroid Problems N GI Problems N Eating Disorder N Anemia N Art (IVF or FET) N Psychiatric Illness N Ovarian Cancer N Diabetes N Pulmonary (TB, Asthma) N Hepatitis/Liver Disease N No Past Medical History N Eczema N Urinary Tract Infection N Abuse/Domestic Violence N Asthma N Trauma/Violence N Depression/ depression N Heart Disease N Pre-Eclampsia N Hypertension Y Osteoporosis N Thrombophilias N Gynecological History Statement/Question Response Abnormal Pap Y Date of Last Mammogram 12/19/2022 Flow Heavy Date of LMP 12/05/2024 Was last menstrual period normal Y STIs/STDs Y HPV Vaccine N Colposcopy 11/10/2024 Duration of Flow (days) 5 Current Control Method Tubal Ligat ion Age at First Child 16 Are cycles usually normal Y Frequency of Cycle (Q days) 28 Sexually Active? Y Menses Monthly Y Age of first menstrual cycle 10 Date of Last Pap Smear 10/05/2024 Sexual Problems? N Desired Control Method Hysterectom y LMP Definite 02/18/2014 Obstetrics History GPAL:G 5 P 3 0 2 3 Type Value Full Term 3 Spontaneous 2 Living 3 Total 5 Past Encounters Encounter ID Performer Location Encounter Start Date Encounter Closed Date Diagnosis/Indication Diagnosis SNOMED-CT Code Diagnosis ICD10 Code Diagnosis IMO Codes Diagnosis Note [id number] BLANQUITA CALLAHAN NP [place] [address] [address] 10/05/2024 09:18:52 10/05/2024 10:47:16 Menorrhagia [id number] N92.0 [id number] Today we discussed multiple options for menorrhagi a including: IUDs, Patch, Ring, Pills, Nexplanon, Lysteda; Endometria l ablation (requires MD consult). We discussed if any are contraindi cated with her current health Hx.Pelvic ultrasound ordered for further evaluation .Patient interested in endometria l ablation and requested to meet with MD after ultrasound . Well woman health examination [id number] Z01.419 [id number] Annual gynecologi beltran exam performed. Patient will come back in a year unless there are new symptoms. Suggest Calcium with Vitamin D if not eating in diet. Patient advised to get annual flu shot. Recommend yearly physicals and perform monthly breast exams. Genetic testing is available for patients with family history of cancer. Engage in safe sexual practices, use condoms. Encouraged to have daily exercise. Avoid tobacco and illicit drugs, moderation of alcohol. If BMI greater than 25 dietary consult advised. If you have any questions please call or email. mammogram- has mammogram scheduled for 04/15/2025 at [facility]; PCP ordered colon cancer screening - due next year for screening colonoscop y DEXA scan- n/a Pap smear- pap w/ HPV collected laboratory evaluation - PCP STI testing - declined [id number] LEATHA WHITLEY MD [place] [address] [address] 10/22/2024 09:19:22 10/22/2024 10:03:43 Menorrhagia [id number] N92.0 [id number] LEATHA WHITLEY MD [place] [address] [address] 10/28/2024 09:08:53 10/28/2024 16:16:45 Menorrhagia [id number] N92.0 [id number] - hx of heavy but regular cycles since tubal ligation- not candidate for estrogen containing hormonal control due to hx of HTN- pelvic US wnl, EMS 7mm- recommend EMB at time of colpo to evaluate for hyperplasi a and malignancy - discussed treatment options including expectant management , medical management , and surgical management including endometria l ablation and hysterecto my- patient interested in hysterecto my, will see Dr. Weaver post colposcopy for possible combo case with Dr. Jose Luis CORLEY sent for temporary control during workup Atypical s quamous cells of undetermined significance on cervical Papanicolaou smear [id number] R87.610 R87.810 [id number] - longstandi ng hx of abnormal pap smears with hx of 2 LEEPs- discussed total hysterecto my including cervix due to hx of abnormal pap smears; will need to evaluate for malignancy with colpo prior to surgical decision making- colposcopy scheduled for 11/10 Cystocele [id number] N81. 10 [id number] - patient reports hx of bladder prolapse- discussed possibilit y of combo case with Dr. Martin to treat prolapse at time of hysterecto my [id number] LEATHA WHITLEY MD [place] [address],[facility] [place] [address] 11/10/2024 13:47:39 11/10/2024 15:01:19 Menorrhagia [id number] N92.0 [id number] - hx of heavy but regular cycles since tubal ligation- not candidate for estrogen containing hormonal control due to hx of HTN- pelvic US wnl, EMS 7mm- EMB performed today without issue- discussed treatment options including expectant management , medical management , and surgical management including endometria l ablation and hysterecto my- patient interested in hysterecto my, will see Dr. Weaver post colposcopy for possible combo case with Dr. Jose Luis CORLEY sent for temporary control during workup Atypical s quamous cells of undetermined significance on cervical Papanicolaou smear [id number] R87.610 R87.810 [id number] - longstandi ng hx of abnormal pap smears with hx of 2 LEEPs- discussed total hysterecto my including cervix due to hx of abnormal pap smears; will need to evaluate for malignancy with colpo prior to surgical decision making- colposcopy performed today without issue- will follow up as results become available Cystocele [id number] N81. 10 [id number] - patient reports hx of bladder prolapse- discussed possibilit y of combo case with Dr. Martin to treat prolapse at time of hysterecto my [id number] Chas Weaver MD [place] [address] [address] 11/16/2024 09:39:04 11/17/2024 08:50:52 Menorrhagia [id number] N92.0 [id number] This patient is a 44-year-ol d female presents for heavy vaginal bleeding. She has longstandi ng very heavy bleeding. Her menses are regular. However, they require double protection . Patient has accidents, getting blood on her bedding and clothing. Is affected work. She changes a pad or tampon every hour. She leaks blood around the pad and tampon. This bleeding has a profound impact on her quality of life and her activities of daily living. Patient has failed medical treatment options. We discussed treatment options in detail. Patient would like to proceed with definitive surgical treatment. We talked about hysterecto my. We agreed to robotic hysterecto my with bilateral salpingect tunde. The patient understand s the procedure. The procedure was described to the patient in great detail. the patient also understand s the risks. The risks were also explained in detail. She understand s that injuries May occur during surgery. She understand s these injuries can result in hospitaliz ation, more surgery, and severe illness. She understand s there is risk of hemorrhage and infection. I spent over 30 minutes on her care in total. [id number] BLANQUITA CALLAHAN, GWEN [place] [address] [address] 12/15/2024 09:27:20 12/15/2024 09:45:39 Venereal disease screening [id number] Z11.3 [id number] Urine sample collected for trichomona s MARIBEL. Patient finished antibiotic s as prescribed and denies symptoms/c oncerns.Di scussed the various types of STDs, related symptoms and the potential consequenc es (including effects on fertility) of STD infections . Reviewed ways to limit exposure and prevention techniques . Health Concerns Section Related Observation LastModified by Organization Detai ls LastModified Time None Recorded Concern Status LastModified by Organization Details LastModified Time None Recorded Advance Directives Directive N: Payers Insurance Date Sequence Insurance Name Policy Number Policy Cook Covered Member ID Cook Member ID Guarantor Name 12/29/2024 1 [facility] [employer] [facility] [place] [id number] Bhavani Guy [id number] Bhavani Guy 11/15/2024 1 [place] [id number] Bhavani Guy [id number] Bhavani Guy 11/15/2024 1 [facility] [employer] ([place]) [id number] Bhavani Guy [id number] Bhavani Guy Notes Date Note Type Note Provider Name and Address Organization Details Recorded Time 10/28/2024 text/html Patient presents to discuss pelvic US results and discuss next steps. She reports hx of PCOS and very infrequent periods prior to tubal ligation. Since her tubal, she reports now regular however extremely heavy periods. She is using a super tampon in 1.5-2 hours. She has not tried any medical management of menorrhagia. She also has a history of abnormal pap smears s/p 2 LEEPs. Her last pap was in 2013. Her most recent pap smear was ASCUS with +HPV. She is scheduled for colposcopy on 11/10. She also reports a history of bladder prolapse. She has not had any urinary retention or frequent UTIs. LEATHA WHITLEY MD [address], [place], [address], [facility] 10/28/2024 16:02:20 11/10/2024 text/html Patient presents for colposcopy and endometrial biopsy indicated for heavy menstrual bleeding and ASCUS +HPV pap smear. LEATHA WHITLEY MD [address], [place], [address], [facility] 11/10/2024 15:01:14 11/16/2024 text/html This patient is a 44-year-old female presents for heavy vaginal bleeding. She has longstanding very heavy bleeding. Her menses are regular. However, they require double protection. Patient has accidents, getting blood on her bedding and clothing. Is affected work. She changes a pad or tampon every hour. She leaks blood around the pad and tampon. This bleeding has a profound impact on her quality of life and her activities of daily living. Patient has failed medical treatment options. We discussed treatment options in detail. Patient would like to proceed with definitive surgical treatment. We talked about hysterectomy. We agreed to robotic hysterectomy with bilateral salpingectomy. The patient understands the procedure. The procedure was described to the patient in great detail. the patient also understands the risks. The risks were also explained in detail. She understands that injuries May occur during surgery. She understands these injuries can result in hospitalization, more surgery, and severe illness. She understands there is risk of hemorrhage and infection. Chas Weaver MD [address], [place], [address], [place] [facility] 11/16/2024 17:58:37 12/15/2024 text/html 44 y/o female presents for MARIBEL for trichomonas. Laura ortega, [facility] 12/15/2024 09:49:05 OBGyn Episode Ob Episode Information Episode Created Date Number of Fetuses Patient Bloodtype Patient rh Status Prepregnancy Weight lbs Domestic Partner Domestic Partner Phone Father Name Dock Or Pier Laborer Status 10/06/19 25 1 CLOSED Fetus Data First Name Last Name Admitted to NICU Weight (g) Sex Living Outcome Pediatric Complications Fetus ID Race Codes Race Delivery Type , Spontane ous [id number] Won Calculation Initial Won Date Initial Exam Date Initial Exam Provider Initial Ultrasound Date Last Menstrual Period Date Ultra Sound Weeks Gestation 0 Eighteen To Twenty Week Won Update Ultra Sound Date Fundal Height At Umbil Quickening Date Ultra Sound Latest Weeks Gestation Final Won Confirmed By Final Won Confirmed Date Final Won Date Ultra Sound Latest Days Gestation 0 0 Menstrual History Last Menstrual Date Menses Monthly On Bcp Conception Prior Menses Frequency Hcg Plus Date Menarche Onset Age Delivery Information Delivery Date Delivery Type Labor Anesthesia Weeks Gestation Incision Type Labor Labor Length Hrs Delivered By Post Complications Tubal Sterilization Discharge Date Comments 4 Discharge Information Feeding Method Contraceptive Method Maternal HG B and HCT Levels Ob Episode Information Episode Created Date Number of Fetuses Patient Bloodtype Patient rh Status Prepregnancy Weight lbs Domestic Partner Domestic Partner Phone Father Name Dock Or Pier Laborer Status 10/06/19 25 1 CLOSED Fetus Data First Name Last Name Admitted to NICU Weight (g) Sex Living Outcome Pediatric Complications Fetus ID Race Codes Race Delivery Type , Spontane ous [id number] Won Calculation Initial Won Date Initial Exam Date Initial Exam Provider Initial Ultrasound Date Last Menstrual Period Date Ultra Sound Weeks Gestation 0 Eighteen To Twenty Week Won Update Ultra Sound Date Fundal Height At Umbil Quickening Date Ultra Sound Latest Weeks Gestation Final Won Confirmed By Final Won Confirmed Date Final Won Date Ultra Sound Latest Days Gestation 0 0 Menstrual History Last Menstrual Date Menses Monthly On Bcp Conception Prior Menses Frequency Hcg Plus Date Menarche Onset Age Delivery Information Delivery Date Delivery Type Labor Anesthesia Weeks Gestation Incision Type Labor Labor Length Hrs Delivered By Post Complications Tubal Sterilization Discharge Date Comments 9 Discharge Information Feeding Method Contraceptive Method Maternal HG B and HCT Levels Ob Episode Information Episode Created Date Number of Fetuses Patient Bloodtype Patient rh Status Prepregnancy Weight lbs Domestic Partner Domestic Partner Phone Father Name Dock Or Pier Laborer Status 10/06/19 1 CLOSED Fetus Data First Name Last Name Admitted to NICU Weight (g) Sex Living Outcome Pediatric Complications Fetus ID Race Codes Race Delivery Type M Full Term [id number] Won Calculation Initial Won Date Initial Exam Date Initial Exam Provider Initial Ultrasound Date Last Menstrual Period Date Ultra Sound Weeks Gestation 0 Eighteen To Twenty Week Won Update Ultra Sound Date Fundal Height At Umbil Quickening Date Ultra Sound Latest Weeks Gestation Final Won Confirmed By Final Won Confirmed Date Final Won Date Ultra Sound Latest Days Gestation 0 0 Menstrual History Last Menstrual Date Menses Monthly On Bcp Conception Prior Menses Frequency Hcg Plus Date Menarche Onset Age Delivery Information Delivery Date Delivery Type Labor Anesthesia Weeks Gestation Incision Type Labor Labor Length Hrs Delivered By Post Complications Tubal Sterilization Discharge Date Comments 8 Discharge Information Feeding Method Contraceptive Method Maternal HG B and HCT Levels Ob Episode Information Episode Created Date Number of Fetuses Patient Bloodtype Patient rh Status Prepregnancy Weight lbs Domestic Partner Domestic Partner Phone Father Name Dock Or Pier Laborer Status 10/06/19 1 CLOSED Fetus Data First Name Last Name Admitted to NICU Weight (g) Sex Living Outcome Pediatric Complications Fetus ID Race Codes Race Delivery Type M Full Term [id number] Won Calculation Initial Won Date Initial Exam Date Initial Exam Provider Initial Ultrasound Date Last Menstrual Period Date Ultra Sound Weeks Gestation 0 Eighteen To Twenty Week Won Update Ultra Sound Date Fundal Height At Umbil Quickening Date Ultra Sound Latest Weeks Gestation Final Won Confirmed By Final Won Confirmed Date Final Won Date Ultra Sound Latest Days Gestation 0 0 Menstrual History Last Menstrual Date Menses Monthly On Bcp Conception Prior Menses Frequency Hcg Plus Date Menarche Onset Age Delivery Information Delivery Date Delivery Type Labor Anesthesia Weeks Gestation Incision Type Labor Labor Length Hrs Delivered By Post Complications Tubal Sterilization Discharge Date Comments 3 Discharge Information Feeding Method Contraceptive Method Maternal HG B and HCT Levels Ob Episode Information Episode Created Date Number of Fetuses Patient Bloodtype Patient rh Status Prepregnancy Weight lbs Domestic Partner Domestic Partner Phone Father Name Dock Or Pier Laborer Status 10/06/19 25 1 CLOSED Fetus Data First Name Last Name Admitted to NICU Weight (g) Sex Living Outcome Pediatric Complications Fetus ID Race Codes Race Delivery Type M Full Term [id number] Won Calculation Initial Won Date Initial Exam Date Initial Exam Provider Initial Ultrasound Date Last Menstrual Period Date Ultra Sound Weeks Gestation 0 Eighteen To Twenty Week Won Update Ultra Sound Date Fundal Height At Umbil Quickening Date Ultra Sound Latest Weeks Gestation Final Won Confirmed By Final Won Confirmed Date Final Won Date Ultra Sound Latest Days Gestation 0 0 Menstrual History Last Menstrual Date Menses Monthly On Bcp Conception Prior Menses Frequency Hcg Plus Date Menarche Onset Age Delivery Information Delivery Date Delivery Type Labor Anesthesia Weeks Gestation Incision Type Labor Labor Length Hrs Delivered By Post Complications Tubal Sterilization Discharge Date Comments 5 Discharge Information Feeding Method Contraceptive Method Maternal HG B and HCT Levels
--- OUTSIDE RECORDS SUMMARY | 2024-12-29 12:12 | XMS_ITS | Encounter Summary ---
Author Organization [employer] Address [address] [place] [address] Care Team Providers Care Lung Gun Operator Name Role Phone Isaías Alex MD Primary Care Provider [phone] Encounter Details Date Type Department Care Team (Latest Contact Info) Description 07/24/2004 Outpatient Historical HIS PATIENT IN A BED Ketan Rodriguez MD [address] [facility] [address] [place] [phone] OTHER CURR COND-ANTEPARTUM (Primary Dx) Social History Tobacco Use Types Packs/Day Years Used Date Smoking Tobacco: Never Assessed Comments Unknown Sex and Gender Information Value Date Recorded Sex Assigned at Not on file Legal Sex Female 4:59 AM RIVETER PORTABLE 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 [address] PCP - General Family Practice 01/31/16 documented as of this encounter
--- OUTSIDE RECORDS SUMMARY | 2024-12-29 12:12 | XMS_ITS | Encounter Summary ---
Author Organization [employer] Address [address] [place] [address] Care Team Providers Care Senior Security Engineer Name Role Phone Isaías Alex MD Primary Care Provider [phone] Encounter Details Date Type Department Care Team (Latest Contact Info) Description 05/18/2004 Outpatient Historical HIS PATIENT IN A BED Ketan Rodriguez MD [address] [facility] [address] [place] [address] OTHER CURR COND-ANTEPARTUM (Primary Dx) Social History Tobacco Use Types Packs/Day Years Used Date Smoking Tobacco: Never Assessed Comments Unknown Sex and Gender Information Value Date Recorded Sex Assigned at Not on file Legal Sex Female 4:59 AM STRIKE OPERATIONS OFFICER Gender Identity Not on file Sexual Orientation Not on file documented as of this encounter Plan of Treatment Not on file documented as of this encounter Procedures Procedure Name Priority Date/Time Associated Diagnosis Comments CBC WITH DIFFERENTIAL Routine 05/18/2004 9:38 PM STRIKE OPERATIONS OFFICER CBC WITH DIFFERENTIAL Routine 05/18/2004 9:38 PM STRIKE OPERATIONS OFFICER URINALYSIS W/REFLEX MICROSCOPIC Routine 05/18/2004 9:38 PM STRIKE OPERATIONS OFFICER documented in this encounter Results * (ABNORMAL) URINALYSIS (05/18/2004 9:38 PM STRIKE OPERATIONS OFFICER) COLOR UA Yellow INTERFACE SYSTEM CLARITY UA Slt. Cloudy(A) Clear INTERFACE SYSTEM SPECIFIC GRAVITY UA 1.010 1.001 - 1.035 INTERFACE SYSTEM PH UA 7.0 5.0 - 8.0 INTERFACE SYSTEM LEUKOCYTE ESTERASE UA Negative Negative INTERFACE SYSTEM NITRITE UA Negative Negative INTERFACE SYSTEM PROTEIN UA 1+(A) Negative INTERFACE SYSTEM GLUCOSE UA Negative Negative INTERFACE SYSTEM KETONES UA Negative Negative INTERFACE SYSTEM UROBILINOGEN UA <1 <1 EU INTE RFACE SYSTEM BILIRUBIN UA Negative Negative INTERFA CE SYSTEM BLOOD UA 3+(A) Negative INTERFACE SYSTEM WBC UA 3 0 - 5 /HPF INTERFACE SYSTEM RBC UA >100(H) 0 - 4 /HPF INTERFACE SYSTEM EPITHELIAL CELLS, URINE 2-5 /HPF INTERFACE SYSTEM 05/18/2004 9:38 PM STRIKE OPERATIONS OFFICER Ketan Rodriguez MD URINE ORDERABLES Final Result Performing Organization Address [facility] Phone Number INTERFACE SYSTEM Refer to clinic/hospital department * (ABNORMAL) CBC WITH DIFFERENTIAL (05/18/2004 9:38 PM STRIKE OPERATIONS OFFICER) NEUTROPHILS 74(H) 45 - 70 % INTERFAC E SYSTEM LYMPHOCYTES 19 16 - 45 % INTERFAC E SYSTEM MONOCYTES 6 3 - 13 % INTERFACE SYSTEM EOSINOPHILS 1 0 - 7 % INTERFAC E SYSTEM BASOPHILS 0 0 - 2 % INTERFACE SYSTEM NEUTROPHIL ABSOLUTE 9.62(H) 1.90 - 7.00 K/uL INTERFACE SYSTEM LYMPHOCYTE ABSOLUTE 2.54 0.70 - 4.50 K/uL INTERFACE SYSTEM MONOCYTE ABSOLUTE 0.78 0.10 - 1.30 K/uL INTERFACE SYSTEM EOSINOPHIL ABSOLUTE 0.10 0.00 - 0.70 K/uL INTERFACE SYSTEM BASOPHILS ABSOLUTE 0.02 0.00 - 0.20 K/uL INTERFACE SYSTEM 05/18/2004 9:38 PM STRIKE OPERATIONS OFFICER Ketan Rodriguez MD HEMATOLOGY ORDERABLES Final Resu lt Performing Organization Address [facility] Phone Number INTERFACE SYSTEM Refer to clinic/hospital department * (ABNORMAL) CBC WITH DIFFERENTIAL (05/18/2004 9:38 PM STRIKE OPERATIONS OFFICER) WBC 13.1(H) 4.0 - 9.8 K/uL INTERFACE SYSTEM RBC 3.91 3.90 - 4.90 M/uL INTERFACE SYSTEM HEMOGLOBIN 11.3(L) 11.8 - 14.8 g/dL INTERFACE SYSTEM HEMATOCRIT 34.6(L) 35.5 - 44.0 % INTERFACE SYSTEM MCV 88.5 82.0 - 99.0 fL INTERFACE SYSTEM MCH 28.9 27.2 - 32.6 pg INTERFACE SYSTEM MCHC 32.7 31.5 - 35.5 % INTERFACE SYSTEM RDW 13.2 11.5 - 14.5 % INTERFACE SYSTEM RDW-STDEV 42.4 37.1 - 48.7 fL INTERFACE SYSTEM PLATELETS 212 140 - 350 K/uL INTERFACE SYSTEM MPV 10.2 9.3 - 12.4 fL INTERFACE SYSTEM 05/18/2004 9:38 PM STRIKE OPERATIONS OFFICER us Ketan Rodriguez MD HEMATOLOGY ORDERABLES Final Resu lt INTERFACE SYSTEM Refer to clinic/hospital department documented in this encounter Visit Diagnoses Diagnosis Other current maternal conditions classifiable elsewhere, antepartum- Primary documented in this encounter Care Teams Senior Security Engineer Relationship Specialty Start Date End Date Isaías Alex MD [address] [place] [address] PCP - General Family Practice 01/31/16 documented as of this encounter
--- OUTSIDE RECORDS SUMMARY | 2024-12-29 12:12 | XMS_ITS | Encounter Summary ---
Author Organization [employer] Address [address] [place] [address] Care Team Providers Care Agricultural Equipment Salesperson Name Role Phone Isaías Alex MD Primary Care Provider [phone] Encounter Details Date Type Department Care Team (Latest Contact Info) Description 09/16/2003 Outpatient Historical HIS PATIENT IN A BED Ketan Rodriguez MD [address] [facility] [address] [place] [phone] MILD HYPEREMESIS-ANTEPAR (Primary Dx) Social History Tobacco Use Types Packs/Day Years Used Date Smoking Tobacco: Never Assessed Comments Unknown Sex and Gender Information Value Date Recorded Sex Assigned at Not on file Legal Sex Female 4:59 AM RADIO REPAIR TEACHER Gender Identity Not on file Sexual Orientation Not on file documented as of this encounter Plan of Treatment Not on file documented as of this encounter Visit Diagnoses Diagnosis Mild hyperemesis gravidarum, antepartum- Primary documented in this encounter Care Teams Agricultural Equipment Salesperson Relationship Specialty Start Date End Date Isaías Alex MD [address] [place] [phone] PCP - General Family Practice 01/31/16 documented as of this encounter
--- OUTSIDE RECORDS SUMMARY | 2024-12-29 12:12 | XMS_ITS | Encounter Summary ---
Author Organization [facility] Address [address] [place] [address] Care Team Providers Care Pick Up Attendant Name Role Phone Isaías Alex MD Primary Care Provider [phone] Encounter Details Date Type Department Care Team (Late st Contact Info) Description 2004 Outpatient Historical [facility] Maternal and Ground Floor [address] [facility] [address] [place] [phone] Joey Goodwin MD NO ADDRESS ON FILE Social History Tobacco Use Types Packs/Day Years Used Date Smoking Tobacco: Never Assessed Comments Unknown Sex and Gender Information Value Date Recorded Sex Assigned at Not on file Legal Sex Female 4:59 AM GRAIN ELEVATOR MAN Gender Identity Not on file Sexual Orientation Not on file documented as of this encounter Plan of Treatment Not on file documented as of this encounter Visit Diagnoses Not on filedocumented in this encounter Care Teams Pick Up Attendant Relationship Specialty Start Date End Date Isaías Alex MD [address] [place] [address] PCP - General Family Practice 01/31/16 documented as of this encounter
--- OUTSIDE RECORDS SUMMARY | 2024-12-29 12:12 | XMS_ITS | Encounter Summary ---
Author Organization [facility] Address [address] [place] [address] Care Team Providers Care Flatwork Tier Name Role Phone Isaías Alex MD Primary Care Provider [phone] Encounter Details Date Type Department Care Team (Late st Contact Info) Description 06/21/2004 Outpatient Historical [facility] Maternal and Ground Floor [address] [facility] [address] [place] [phone] Joey Goodwin MD NO ADDRESS ON FILE Social History Tobacco Use Types Packs/Day Years Used Date Smoking Tobacco: Never Assessed Comments Unknown Sex and Gender Information Value Date Recorded Sex Assigned at Not on file Legal Sex Female 4:59 AM BRAILLE TRANSLATOR Gender Identity Not on file Sexual Orientation Not on file documented as of this encounter Plan of Treatment Not on file documented as of this encounter Visit Diagnoses Not on filedocumented in this encounter Care Teams Flatwork Tier Relationship Specialty Start Date End Date Isaías Alex MD [address] [place] [address] PCP - General Family Practice 01/31/16 documented as of this encounter
--- OUTSIDE RECORDS SUMMARY | 2024-12-29 12:12 | XMS_ITS | Encounter Summary ---
Author Organization [employer] Address [address] [place] [address] Care Team Providers Care Wire Basket Maker Name Role Phone Isaías Alex MD Primary Care Provider [phone] Encounter Details Date Type Department Care Team (Latest Contact Info) Description 06/07/2004 Outpatient Historical HIS PATIENT IN A [facility], Elvira Kyle, [address] [facility] [address] [place] [address] Ketan Rodriguez MD [address] [facility] [facility] [place] [address] OBSERVATION-ACCIDENT NEC (Primary Dx) Social History Tobacco Use Types Packs/Day Years Used Date Smoking Tobacco: Never Assessed Comments Unknown Sex and Gender Information Value Date Recorded Sex Assigned at Not on file Legal Sex Female 4:59 AM LACE WINDER Gender Identity Not on file Sexual Orientation Not on file documented as of this encounter Plan of Treatment Not on file documented as of this encounter Visit Diagnoses Diagnosis Observation following other accident- Primary documented in this encounter Care Teams Wire Basket Maker Relationship Specialty Start Date End Date Isaías Alex MD [address] [place] [address] PCP - General Family Practice 01/31/16 documented as of this encounter
--- OUTSIDE RECORDS SUMMARY | 2024-12-29 12:12 | XMS_ITS | Encounter Summary ---
Author Organization [employer] Address [address] [place] [address] Care Team Providers Care Straddle Bug Driver Name Role Phone Isaías Alex MD Primary Care Provider [phone] Encounter Details Date Type Department Care Team (Latest Contact Info) Description 03/18/2004 Outpatient Historical HIS PATIENT IN A BED Chris, Jarett Norris MD [address] [place] [address] Ketan Rodriguez MD [address] [place] [address] PREG COMPL NEC-ANTEPART (Primary Dx) Social History Tobacco Use Types Packs/Day Years Used Date Smoking Tobacco: Never Assessed Comments Unknown Sex and Gender Information Value Date Recorded Sex Assigned at Not on file Legal Sex Female 4:59 AM NON DESTRUCTIVE TESTING TECHNICIAN Gender Identity Not on file Sexual Orientation Not on file documented as of this encounter Plan of Treatment Not on file documented as of this encounter Visit Diagnoses Diagnosis Other specified complication, antepartum(646.83)- Primary Other specified complication, antepartum documented in this encounter Care Teams Straddle Bug Driver Relationship Specialty Start Date End Date Isaías Alex MD [address] [place] [address] PCP - General Family Practice 01/31/16 documented as of this encounter
--- OUTSIDE RECORDS SUMMARY | 2024-12-29 12:12 | XMS_ITS | Encounter Summary ---
Author Organization [employer] Address [address] [place] [address] Care Team Providers Care Casing Machine Operator Name Role Phone Isaías Alex MD Primary Care Provider [phone] Encounter Details Date Type Department Care Team (Latest Contact Info) Description 09/27/2003 Outpatient Historical [facility] Ketan Rodriguez MD [address] [facility] [address] [place] [address] MISSED (Primary Dx) Social History Tobacco Use Types Packs/Day Years Used Date Smoking Tobacco: Never Assessed Comments Unknown Sex and Gender Information Value Date Recorded Sex Assigned at Not on file Legal Sex Female 4:59 AM POWER LINE LINEMAN Gender Identity Not on file Sexual Orientation Not on file documented as of this encounter Plan of Treatment Not on file documented as of this encounter Visit Diagnoses Diagnosis Missed - Primary documented in this encounter Care Teams Casing Machine Operator Relationship Specialty Start Date End Date Isaías Alex MD [address] [place] [address] PCP - General Family Practice 01/31/16 documented as of this encounter
--- OUTSIDE RECORDS SUMMARY | 2024-12-29 12:12 | XMS_ITS | Clinical Summary ---
Author Organization [facility] Address [address] [place] [address] Phone Care Team Providers Care Rolling Machine Operator Name Role Phone Isaías Alex MD Primary Care Provider [phone] Allergies Active Allergy Reactions Criticality Noted Date Comments Iodine Other (See Comments) 03/13/2016 Stomach ache Latex Rash Medium 01/31/2016 Adhesive from tape Medications lamoTRIgine (LaMICtal) 100 mg tablet Take 50 mg by mouth 2 times daily . Active QUEtiapine (SEROquel) 300 mg tablet Take 300 mg by mouth daily . Active butalbital-cod- acetaminop-caf (FIORICET #3) 07-26-103-40 mg capsule Take 1 Capsule by mouth every 4 hours as needed for Migraine. Active Active Problems Problem Noted Date Diagnosed Date Essential hypertension 03/13/2016 Bipolar disorder, unspecified 03/13/2016 Seizure 02/01/2016 Hypokalemia 02/01/2016 Major depression 02/01/2016 Seizure-like activity Psychogenic nonepileptic seizure Family History Medical History Relation Name Comments Healthy Father Breast Cancer Maternal Grandmother Healthy Mother Relation Name Status Comments Father Maternal Grandmother Mother Social History Tobacco Use Types Packs/Day Years Used Date Smoking Tobacco: Never Alcohol Use Standard Drinks/Week Comments Yes 0 (1 standard drink = 0.6 oz pur e alcohol) 1once a month Comments No Sex and Gender Information Value Date Recorded Sex Assigned at Not on file Legal Sex Female 4:59 AM LIVE TRUCK TECHNICIAN Gender Identity Not on file Sexual Orientation Not on file Last Filed Vital Signs Vital Sign Reading Time Taken Comments Blood Pressure 146/100 07/09/2016 7:52 PM CDT Pulse 74 03/16/2016 8:00 AM LIVE TRUCK TECHNICIAN Temperature 36.4 C (97.6 F) 07/09/2016 7:52 PM CDT Respiratory Rate 18 07/09/2016 7:52 PM CDT Oxygen Saturation 100% 07/09/2016 7:52 PM CDT Inhaled Oxygen Concentration - - Weight 78 kg (172 lb) 07/09/2016 7:52 PM CDT Height 165.1 cm (5' 5) 07/09/2016 7:52 PM CDT Body Mass Index 28.62 07/09/2016 7:52 PM CDT Plan of Treatment Health Maintenance Due Date Last Done Comments DTAP/TDAP/TD VACCINES (1 - Tdap) 07/22/1999 HEPATITIS B VACCINES (1 of 3 - 19+ 3-dose series) 04/1999 HPV/Cotest (21-29) 2001 HPV VACCINES (1 - 3-dose SCDM series) 07/22/2007 CERVICAL CANCER SCREENING 2010 HPV/Cotest (30-65) 2010 PAP SMEAR 2010 BREAST CANCER SCREENING 2020 INFLUENZA VACCINE (#1) 2024 Insurance Advance Directives For more information, please contact: [phone] * Full Code (Latest Code Status on File) Date Activated Date Inactivated Comments 03/13/2016 11:56 PM 03/16/2016 8:01 PM * Full Code Date Activated Date Inactivated Comments 03/13/2016 9:17 PM 03/13/2016 11:56 PM * Full Code Date Activated Date Inactivated Comments 02/01/2016 1:15 AM 02/02/2016 7:54 PM Care Teams Rolling Machine Operator Relationship Specialty Start Date End Date Isaías Alex MD [address] [place] [id number] PCP - General Family Practice 01/31/16
--- OUTSIDE RECORDS SUMMARY | 2024-12-29 12:12 | XMS_ITS | Encounter Summary ---
Author Organization [facility] Address 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 [address] PCP - General Family Practice 01/31/16 documented as of this encounter
--- OUTSIDE RECORDS SUMMARY | 2024-12-29 12:12 | XMS_ITS | Encounter Summary ---
Author Organization [employer] Address [address] [place] [address] Care Team Providers Care Cooler Worker Name Role Phone Isaías Alex MD Primary Care Provider Encounter Details Date Type Department Care Team (Latest Contact Info) Description 08/11/2004 Inpatient Historical [facility] PATIENT IN A BED Abdi cShuler MD NO ADDRESS ON FILE Ketan Rodriguez MD [address] [facility] [address] [place] [phone] CORD ENTANGLE NEC-DELIV (Primary Dx) Social History Tobacco Use Types Packs/Day Years Used Date Smoking Tobacco: Never Assessed Comments Unknown Sex and Gender Information Value Date Recorded Sex Assigned at Not on file 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 [address] PCP - General Family Practice 01/31/16 documented as of this encounter
--- OUTSIDE RECORDS SUMMARY | 2024-12-29 12:12 | XMS_ITS | Encounter Summary ---
Author Organization [employer] Address 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 [phone] PCP - General Family Practice 01/31/16 documented as of this encounter
[2024-12-29 12:54] LABS: Alanine Aminotransferase 15 U/L (6-35); Albumin Level 4.2 g/dL (3.5-5.1); Alkaline Phosphatase 67 U/L (38-126); Anion Gap 8 mmol/L (4-12); Aspartate Amino Transferase 21 U/L (14-36); Bilirubin,Total 0.4 mg/dL (0.2-1.3); Blood Urea Nitrogen 17 mg/dL (7-17); Calcium 8.8 mg/dL (8.4-10.2); Carbon Dioxide 28 mmol/L (22-30); Chloride 101 mmol/L (98-107); Estimated Glomerular Filt Rate > 60; Glucose 88 mg/dL (65-110); Potassium 3.2 mmol/L (3.4-5.0); Sodium 137 mmol/L (137-145); Total Protein 7.2 g/dL (6.3-8.2)
== END 2024-12-29 11:38 | disposition home or self-care (01) ==
PROVIDERS: PCP Physician Assistant; Visit Provider Obstetrics & Gynecology
DX: N92.0 Excessive and frequent menstruation with regular cycle (principal); I10 Essential (primary) hypertension
CPT/HCPCS: 36415; 80053; 86850; 86900; 86901; 93005

== ENCOUNTER 2025-01-06 00:30 | Day surgery (SDC) | payer OTHER, BC, SELFPAY ==
[2024-12-24 09:43] VITALS: BMI 33.3
--- NOTE | 2024-12-24 09:55 | SUR.PREOP ---
[facility] has started construction of its new state of the art ER which will open Spring 2026. With this, we anticipate parking may be a challenge for some our surgical patients and families. Parking spaces are limited but are available for all Surgical, obstetrics, and ER patients sharing this lot. If you arrive and find you are having a hard time finding a parking space, please note that we understand the challenges, please drive around the hospital and park near Hospital Entrance 1. When you enter this entrance, you can ask a volunteer to direct or take you back to the surgical waiting area to check in. We appreciate everyone?s understanding of these expected challenges while we build for your future. Report to the Outpatient Waiting Room, entrance under the green pavilion located off [address], at time 11:30a.m. on date 01/06/2025. Planned Procedure Time: 1:30p.m.? Time changes happen often and if your time is changed the preop area will call you the afternoon before. - You and your visitor will be asked to self-screen and do not enter if you have any COVID symptoms. Please call surgeon if you need to reschedule. - A mask is optional within the hospital at this time. Patients may have clear liquids (water, carbonated beverages, clear teas, apple juice) until 3 hours prior to surgery with a maximum of 20 ounces. - No food from midnight until time of surgery and no smoking, or chewing tobacco (or any form of nicotine). No chewing gum, candy or mints. Take only the following medications with a SIP of water on the morning of surgery: hydroxyzine DO NOT STOP ANY OF YOUR OTHER PRESCRIPTION MEDICATIONS PRIOR TO SURGERY EXCEPT THE FOLLOWING Hold all vitamins and supplements for 3 days per anesthesiologist. Medications to discontinue per physician: Liraglutide Date to take last dose 12/27/2024 Please no make-up, nail maori, hairspray, perfume, deodorant, or body powder the day of surgery.? No jewelry (including any body piercings) or valuables the day of surgery, leave them at home.? Please take a shower or bath the night before, or the morning of, surgery with an antibacterial soap.? Wear comfortable, loose fitting clothing.? - Jewelry must be removed prior to entering the operating room.? Rings and piercings that are not removed may be cut off. - The hospital will not accept responsibility for valuables.? - Please leave all valuables, including medications, at home the day of surgery. If you are going home after surgery, a licensed stacker driver must drive you home.? - NO public transportation without another adult if you receive anesthesia. - We recommend that an adult stay with you for 24 hours following discharge. - We also recommend that you do not drive, make important decision, drink alcoholic beverages, or take any drugs that were not prescribed by your health care provider for at least 24 hours after your discharge time. For Pediatric surgeries, we recommend two adults accompany the child home. Follow any additional instructions given to you from your surgeon. Telephone instructions given to Bhavani Guy and asked if any additional questions and then verbalized understanding. Patient advised to call surgeon office or pre surgery nurse liaison [phone] if any additional questions.
[2025-01-06] VITALS (11 sets, daily range): BP systolic 113–146; BP diastolic 69–90; PULSE 65–79; RESP 10–21; TEMP 36.2–37; O2SAT 97–100
--- OUTSIDE RECORDS SUMMARY | 2025-01-06 05:25 | XMS_ITS | Continuity of Care Document ---
Author Organization [facility] Address [address] [place] [address] Care Team Providers Care Adobe Architect Name Role Phone JASMIN SPICER Primary Care Provider Assessment No assessment recorded. Plan of Treatment Reminders Order Date Submit Date Provider Last Modified By Organization Details Last Modified Time Details Appointments [facility]otic [facility] 2024 01:30P Rasheeda WEAVER MD Not available Not available Not available SURG POST OP 2024 09:45A Rasheeda WEAVER MD Not available Not available Not available Lab None recorded . Referral None recorded . Procedures None recorded . Surgeries None recorded . Imaging None recorded . Medication Orders None recorded . Patient TargetsNo targets recorded. Patient InstructionsNo instructions recorded. Reason for Referral None Reported. Results Created Date Observation Date Name Description Value Unit Range Abnormal Flag Note LastModifiedBy Organization Detail LastModifiedTime 11/11/19 25 11/10/2024 SURGI BELTRAN PATHO LOGY surgical pathology SEE RESULT S BELOW CASE REPOR T: Surgi beltran Patho logy Repor t Case: [id number] Autho cintia maravilla Provi silvano: Brandan [...] ng proce ss was perfo rmed at [facility] Labor atory site NMDP1 11. Digit al imagi ng was used in the diagn ostic asses sment of this case. GROSS DESCR IPTIO N: A. Endom etriu m. The speci men is label ed with the patie nt's name, sayda lorenz and EMB. Recei freddie in forma janel is a 3.0 x 2.0 x 0.2 cm aggre gate of boyle-b rown tissu e mixed with blood clot. The entir e speci men is submi tted in 2 casse ttes. Gross ed by Cony Bhatti Not Available [facility] (Lab) [address] [facility], [place], [address], 11/12/2024 11:41:01 11/11/1911/12/2024 CERVI X/END OCERV IX cervical histology LSIL abnormal Not Available [facility] ([facility]) [address], [place], [address], 11/12/2024 13:31:05 11/11/19 25 11/12/2024 CERVI X/END OCERV IX endocervical brushing histology Negati ve normal Not Available [facility] ([facility]) [address], [place], [address], 11/12/2024 13:31:05 11/11/19 25 11/12/2024 CERVI X/END [...] not prese nt. MILD CERVI BELTRAN DYSPL COLLIN (N87. 0) GROSS ING INFOR MATIO N: [...] CERVI X UTERI (R87. 619) Not Available [facility] ([facility]) [address], [place], [address], 11/12/2024 13:31:05 10/23/19 25 10/22/2024 US, josef s No observ ation record ed. [email or web address] [facility] [address], [place], [address], 10/22/2024 12:57:31 10/23/19 25 10/22/2024 US, trans vagin al No observ ation record ed. [email or web address] [facility] [address], [place], [address], 10/22/2024 12:57:40 10/23/19 25 10/22/2024 US, pelvi s No observ ation record ed. NANETTE Caballero [address], [place], [address], 10/26/2024 17:25:44 Result Notes None recorded. Procedures Surgical History Date Name Laterality Status Provider Name and Address Organization Details Recorded Time 11/11/19 25 Colposcopy completed LEATHA WHITLEY MD [address], [place], [address], [facility] 11/10/2024 14:55:42 11/11/19 25 Endometrial Biopsy completed LEATHA WHITLEY MD [address], [place], [address], [facility] 11/10/2024 14:57:50 11/11/19 25 Colposcopy completed Swetha Martino [facility] 11/16/2024 10:14:07 11/11/19 25 Colposcopy completed Swetha Martino [facility] 11/16/2024 10:15:05 10/06/19 25 Date of Last Pap Smear completed Mile Elise [facility] 10/28/2024 09:19:26 09/22/19 25 Dilation and Curettage completed Mary Guo [facility] 10/05/2024 09:43:54 12/20/19 23 Date of Last Mammogram completed Mary Guo [facility] 10/05/2024 09:43:54 02/18/19 15 Date of Last Colonoscopy completed Laura Vera [facility] 01/04/2025 11:43:23 LEEP completed [facility] 10/05/2024 09:43:54 Tubal Ligation completed [facility] 10/05/2024 09:43:54 Ovarian Cystectomy completed [facility] 10/05/2024 09:43:54 Imaging Results None recorded. Procedure Notes None recorded. Medical Equipment None Reported. Allergies Allergen ID Allergen Name Allergen Category Reaction Reaction Severity Criticality Documentation Date Start Date Code Code System Note Provider Name and Address Organization Details Recorded Time 44394 adhesive tape environme nt,medica tion Not available Not available Not available 10/05/2024 [facility] 5 09:44:10 21217 iodine medicatio n Not available Not available Not available 01/04/20252016 5933 RxNorm Stoma ch ache Not Available [employer] - prod 5 03:19:28 45765 latex environme nt,medica tion rash Not available [facility] 01/04/20252015 39555 91 RxNorm Adhes maria fernanda from tape Not Available [employer] - prod 5 03:19:28 Medications Name Sig Start Date Stop Date Status Note LastModified by Organization Details LastModified Time metformin 500 mg tablet TAKE 1 TAB EVERYDAY WITH MEALS FOR 1 WEEK, THEN TAKE 1 TAB TWICE A DAY WITH MEALS FOR ONE WEEK, THEN TAKE 2 TABS TWICE A DAY WITH MEALS 10/05 completed Not Available Not Available Not Available trazodone 50 mg tablet TAKE 1 TABLET BY MOUTH AT BEDTIME FOR DIFFICULT Y SLEEPING active Not Available Not Available No t Available hydrocodone 5 mg-acetamin ophen 325 mg tablet TAKE 1 TABLET BY MOUTH EVERY 6 HOURS active Not Available Not Available No [...] completed Not Available Not Available Not Available alprazolam 0.5 mg tablet TAKE 1 TABLET 1 HOUR PRIOR TO PROCEDURE active Not Available Not Available No t Available hydrochloro thiazide 25 mg tablet TAKE [...] Updated DateTime 11/10/2024 165.1 cm 33.1 kg/m2 72476.88 g 110/76 mm[Hg] Mile Elise [facility] 11/10/2024 14:38:35 Social History Question Answer Notes LastModified by Organizat ion Details LastModified Time Tobacco Smoking Status Never Smoker Mary Guo [facility] 10/05/2024 09:47:57 Do You Have An Advance Directive? No Information n ot available 10/05/2024 Are You Blind Or Do You Have Difficulty Seeing? No [email or web address] Information n ot available 10/05/2024 What Is Your Level Of Caffeine Consumption? Moderate [email or web address] Information not available 10/05/2024 How Much Tobacco Do You Chew? None Information not available 10/05/2024 In The 14 Days Before Symptom Onset, Have You Had Close Contact With A Laboratory-confirm ed COVID-19 While That Case Was Ill? No Information n ot available 10/05/2024 In The 14 Days Before Symptom Onset, Have You Had Close Contact With A Person Who Is Under Investigation For COVID-19 While That Person Was Ill? No [email or web address] Information not available 10/05/2024 Have You Been To An Area Known To Be High Risk For COVID-19? No [email or web address] Information not available 10/05/2024 Are You Deaf Or Do You Have Serious Difficulty Hearing? No [email or web address] Information not available 10/05/2024 What Type Of Diet Are You Following? REGULAR [email or web address] Information n ot available 10/05/2024 What Is The Highest Grade Or Level Of School You Have Completed Or The Highest Degree You Have Received? [id number] [email or web address] Information not available 10/05/2024 Are There Any Guns Present In Your Home? No [email or web address] Information not available 10/05/2024 Do You Use Protection During Sex? Usually [email or web address] Information not available 10/05/2024 Do You Use Your Seat Belt Or Car Seat Routinely? Yes [email or web address] Information not available 10/05/2024 Do You Have Smoke And Carbon Monoxide Detectors In Your Home? Yes [email or web address] Information not available 10/05/2024 How Much Tobacco Do You Smoke? No [email or web address] Information not available 10/05/2024 Do You Use Sunscreen Routinely? Yes Information not available 10/05/2024 Have You Used IV Drugs? No [email or web address] Information not available 10/05/2024 Sex: Unknown Functional Status Question Answer Note LastModified by Organizat ion Details LastModified Time Do you use any illicit or recreational drugs? No Information not available 10/05/2024 What is your level of alcohol consumption? Occasional [email or web address] Information not available 10/05/2024 Are you able to walk independently without assistance or assistive devices? 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 Occasional [email or web address] Information not available 10/05/2024 Mental Status Question Answer Note LastModified by Organization D etails LastModified Time Do you feel stressed (tense, restless, nervous, or anxious, or unable to sleep at night)? [id number] [email or web address] Information not available 10/05/2024 Family History Relationship Description Onset Age of this Age Resolved Age Notes LastModified by Organization Details LastModified Time Paternal Grandmother Heart disease [email or web address] Not available 2024 09:43:54 Maternal Grandmother Hypertensive disorder [email or web address] Not available 2024 09:43:54 Maternal Grandmother Heart disease Not available 2024 09:43:54 Medical History Condition [...] Y Date of Last Mammogram 12/19/2022 Flow Moderate Date of LMP 11/07/2024 Was last menstrual period normal Y STIs/STDs N HPV Vaccine N Colposcopy 11/10/2024 Duration of Flow (days) 4 Current Control Method Tubal Ligat ion Age at First Child 16 Are cycles usually normal Y Date of Last Colonoscopy 02/18/2014 Frequency of Cycle (Q days) 28 Sexually [...] ICD10 Code Diagnosis IMO Codes Diagnosis Note [id number] LEATHA WHITLEY MD [facility] [address] [address] 10/22/2024 09:19:22 10/22/2024 10:03:43 Menorrhagia 294346799 N92.0 4509595 [id number] LEATHA WHITLEY MD [facility] [address] [address] 10/28/2024 09:08:53 10/28/2024 16:16:45 Menorrhagia 424695449 N92.0 0599311 - hx of heavy but regular cycles [...] colposcopy for possible combo case with Dr. Martin- TXA sent for temporary control during workup Atypical s quamous cells of undetermined significance on cervical Papanicolaou smear 854918252 R87.610 R87.810 [id number] - longstandi ng hx of abnormal pap smears with hx of 2 LEEPs- discussed total hysterecto my including cervix due to hx of abnormal pap smears; will need to evaluate for malignancy with colpo prior to surgical decision making- colposcopy scheduled for 11/10 Cystocele 973269469 N81. 10 [id number] - patient reports hx of bladder prolapse- discussed possibilit y of combo case with Dr. Martin to treat prolapse at time of hysterecto my [id number] LEATHA WHITLEY MD [facility] [address] [address] 11/10/2024 13:47:39 11/10/2024 15:01:19 Menorrhagia 532135732 N92.0 8796028 - hx of heavy but regular cycles [...] colposcopy for possible combo case with Dr. Martin- TXA sent for temporary control during workup Atypical s quamous cells of undetermined significance on cervical Papanicolaou smear 708582274 R87.610 R87.810 [id number] - longstandi ng hx of abnormal pap smears with hx of 2 LEEPs- discussed total hysterecto my including cervix due to hx of abnormal pap smears; will need to evaluate for malignancy with colpo prior to surgical decision making- colposcopy performed today without issue- will follow up as results become available Cystocele 258015665 N81. 10 [id number] - patient reports hx of bladder prolapse- discussed possibilit y of combo case with Dr. Martin to treat prolapse at time of hysterecto my Health Concerns Section Related Observation LastModified by Organization Detai ls LastModified Time None Recorded Concern Status LastModified by Organization Details LastModified Time None Recorded Payers Encounter Date Sequence Insurance Name Policy Number Policy Cook Covered Member ID Cook Member ID Guarantor Name 11/10/2024 1 [facility] [facility] [employer] (PP[employer]) [id number] Bhavani Guy [id number] Bhavani Guy Notes Date Note Type Note Provider Name and Address Organization Details Recorded Time 11/10/2024 text/html Patient presents for colposcopy and endometrial biopsy indicated for heavy menstrual bleeding and ASCUS +HPV pap smear. LEATHA WHITLEY MD [address], [place], [address], [facility] 11/10/2024 15:01:14 OBGyn Episode No OBEpisode recorded.
--- OUTSIDE RECORDS SUMMARY | 2025-01-06 05:26 | XMS_ITS | Continuity of Care Document ---
Author Organization [facility] Address [address] [place] [address] Care Team Providers Care Circuit Judge Name Role Phone JASMIN SPICER Primary Care Provider Assessment No assessment recorded. Plan of Treatment Reminders Order Date Submit Date Provider Last Modified By Organization Details Last Modified Time Details Appointments Robotic TLH 2024 01:30P Rasheeda WEAVER MD Not available Not available Not available SURG POST OP 2024 09:45A Rasheeda WEAVER MD Not available Not available Not available Lab None recorded. Referral None recorded. Procedures None recorded. Surgeries None recorded. Imaging None recorded. Medication Orders tranexami c acid 650 mg tablet 2024 025 [facility], [address] [place] [address], [address], 10/28/2024 16:02:13 ibuprofen 600 mg tablet 2024 025 [facility], [facility] [place], [address], 11/16/2024 10:20:23 oxycodone -acetamin ophen 5 mg-325 mg tablet 2024 025 [facility], [facility] [place], [address], 11/16/2024 10:20:25 Xanax 0.5 mg tablet 2024 025 [facility], [address] [place] [address], [address], 11/16/2024 10:20:22 ondansetr on 8 mg disintegr ating tablet 2024 025 [facility], [address] [place], [address], 11/16/2024 10:20:30 Patient TargetsNo targets recorded. Patient InstructionsNo instructions recorded. Reason for Referral None Reported. 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 Trich omona s vagin [...] Hormo emily (if appli cable ): ROMANA ROACH FOLLO W-UP: Follo w up as basiaa nted, based on curre nt guide lines and indiv idual patie nt consi derat ions. Not Available [facility] (Lab) [address], [place], [address], 10/07/2024 18:09:07 10/23/19 25 10/22/2024 US, pelvi s No observ ation record ed. [email or web address] [place] [address], [place], [address], 10/22/2024 12:57:31 10/23/19 25 10/22/2024 US, trans vagin al No observ ation record ed. [email or web address] [place] [address], [place], [address], 10/22/2024 12:57:40 10/23/19 25 10/22/2024 US, pelvi s No observ ation record ed. [facility]ETTE Caballero [address] [address], [place], [address], 10/26/2024 17:25:44 Result Notes None recorded. Procedures Surgical History Date Name Laterality Status Provider Name and Address Organization Details Recorded Time 11/11/19 25 Colposcopy completed LEATHA WHITLEY MD [address], [place], [address], [facility] 11/10/2024 14:55:42 11/11/19 25 Endometrial Biopsy completed LEATHA WHITLEY MD [address], [place], [address], [facility] 11/10/2024 14:57:50 11/11/19 25 Colposcopy completed Swetha Martino [facility] 11/16/2024 10:14:07 11/11/19 25 Colposcopy completed Swetha Martino [facility] 11/16/2024 10:15:05 10/06/19 25 Date of Last Pap Smear completed Mile Elise [facility] 10/28/2024 09:19:26 09/22/19 25 Dilation and Curettage completed Mary Guo [facility] 10/05/2024 09:43:54 12/20/19 23 Date of Last Mammogram completed [facility] 10/05/2024 09:43:54 02/18/19 15 Date of Last Colonoscopy completed Laura Vera [facility] 01/04/2025 11:43:23 LEEP completed [facility] 10/05/2024 09:43:54 Tubal Ligation completed [facility] 10/05/2024 09:43:54 Ovarian Cystectomy completed [facility] 10/05/2024 09:43:54 Imaging Results None recorded. Procedure Notes None recorded. Medical Equipment None Reported. Allergies Allergen ID Allergen Name Allergen Category Reaction Reaction Severity Criticality Documentation Date Start Date Code Code System Note Provider Name and Address Organization Details Recorded Time 10941 adhesive tape environme nt,medica tion Not available Not available Not available 10/05/2024 [facility] 5 09:44:10 14059 iodine medicatio n Not available Not available Not available 01/04/20252016 5933 RxNorm Stoma ch ache Not Available [employer] - prod 5 03:19:28 20531 latex environme nt,medica tion rash Not available [facility] 01/04/20252015 64380 91 RxNorm Adhes maria fernanda from tape Not Available [employer] - prod 5 03:19:28 Medications [...] Updated DateTime 10/28/2024 165.1 cm 33.8 kg/m2 58698.25 g 109/75 mm[Hg] Mile Elise [facility] 10/28/2024 09:18:41 Social History Question Answer Notes LastModified by Organizat ion Details LastModified Time Tobacco Smoking Status Never Smoker Mary Guo shannon, [facility] 10/05/2024 09:47:57 Do You Have An Advance Directive? No [email or web address] Information n ot available 10/05/2024 Are You Blind Or Do You Have Difficulty Seeing? No Information n ot available 10/05/2024 What Is Your Level Of Caffeine Consumption? Moderate [email or web address] Information not available 10/05/2024 How Much Tobacco Do You Chew? None Information not available 10/05/2024 In The 14 Days Before Symptom Onset, Have You Had Close Contact With A Laboratory-confirm ed COVID-19 While That Case Was Ill? No [email or web address] Information n ot available 10/05/2024 In The 14 Days Before Symptom Onset, Have You Had Close Contact With A Person Who Is Under Investigation For COVID-19 While That Person Was Ill? No [email or web address] Information not available 10/05/2024 Have You Been To An Area Known To Be High Risk For COVID-19? No [email or web address] Information not available 10/05/2024 Are You Deaf Or Do You Have Serious Difficulty Hearing? No [email or web address] Information not available 10/05/2024 What Type Of Diet Are You Following? REGULAR [email or web address] Information n ot available 10/05/2024 What Is The Highest Grade Or Level Of School You Have Completed Or The Highest Degree You Have Received? QR88417-7 [email or web address] Information not available 10/05/2024 Are There Any Guns Present In Your Home? No Information not available 10/05/2024 Do You Use Protection During Sex? Usually [email or web address] Information not available 10/05/2024 Do You Use Your Seat Belt Or Car Seat Routinely? Yes Information not available 10/05/2024 Do You Have Smoke And Carbon Monoxide Detectors In Your Home? Yes [email or web address] Information not available 10/05/2024 How Much Tobacco Do You Smoke? No [email or web address] Information not available 10/05/2024 Do You Use Sunscreen Routinely? Yes [email or web address] Information not available 10/05/2024 Have You Used IV Drugs? No Information not available 10/05/2024 Sex: Unknown Functional Status Question Answer Note LastModified by Organizat ion Details LastModified Time Do you use any illicit or recreational drugs? No [email or web address] Information not available 10/05/2024 What is your level of alcohol consumption? Occasional [email or web address] Information not available 10/05/2024 Are you able to walk independently without assistance or assistive devices? 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 Occasional [email or web address] Information not available 10/05/2024 Mental Status Question Answer Note LastModified by Organization D etails LastModified Time Do you feel stressed (tense, restless, nervous, or anxious, or unable to sleep at night)? [id number] [email or web address] Information not available 10/05/2024 Family History Relationship Description Onset Age of this Age Resolved Age Notes LastModified by Organization Details LastModified Time Paternal Grandmother Heart disease [email or web address] Not available 2024 09:43:54 Maternal Grandmother Hypertensive disorder [email or web address] Not available 2024 09:43:54 Maternal Grandmother Heart disease [email or web address] Not available 2024 09:43:54 Medical History Condition [...] ICD10 Code Diagnosis IMO Codes Diagnosis Note [id number] BLANQUITA CALLAHAN, GWEN [place] [address] [address] 10/05/2024 09:18:52 10/05/2024 10:47:16 Menorrhagia [id number] N92.0 [id number] Today we discussed multiple options for menorrhagi a including: IUDs, Patch, Ring, Pills, Nexplanon, Lysteda; Endometria l ablation (requires MD consult). We discussed if any are contraindi cated with her current health Hx.Pelvic ultrasound ordered for further evaluation .Patient interested in endometria l ablation and requested to meet with MD after ultrasound . Well woman health examination [id number] Z01.419 [id number] Annual gynecologi beltran exam performed. Patient will [...] mammogram- has mammogram scheduled for 04/15/2025 at [facility]; PCP ordered colon cancer screening - due next year for screening colonoscop y DEXA scan- n/a Pap smear- pap w/ HPV collected laboratory evaluation - PCP STI testing - declined [id number] LEATHA WHITLEY MD [place] [address] [address] 10/22/2024 09:19:22 10/22/2024 10:03:43 Menorrhagia [id number] N92.0 [id number] LEATHA WHITLEY MD [place] [address] [address] 10/28/2024 09:08:53 10/28/2024 16:16:45 Menorrhagia [id number] N92.0 [id number] - hx of heavy but regular cycles [...] of undetermined significance on cervical Papanicolaou smear [id number] R87.610 R87.810 [id number] - longstandi ng hx of abnormal pap smears with hx of 2 LEEPs- discussed total hysterecto my including cervix due to hx of abnormal pap smears; will need to evaluate for malignancy with colpo prior to surgical decision making- colposcopy scheduled for 11/10 Cystocele [id number] N81. 10 [id number] - patient reports hx of bladder prolapse- [...] Member ID Cook Member ID Guarantor Name 10/28/2024 1 [facility] - [employer] - [employer] (PPO) [id number] Bhavani Guy [id number] Bhavani Guy Notes Date Note Type Note [...] UTIs. LEATHA WHITLEY MD [address], [place], [address], [facility] 10/28/2024 16:02:20 OBGyn Episode No OBEpisode recorded.
--- OUTSIDE RECORDS SUMMARY | 2025-01-06 05:26 | XMS_ITS | Continuity of Care Document ---
Author Organization [facility] Address [address] [place] [address] Care Team Providers Care Disability Insurance Claim Examiner Name Role Phone JASMIN SPICER Primary Care [...] with salpingec gaye (SURG) 2024 025 [id number], [facility] [address], [address], 11/17/2024 12:25:00 Imaging None recorded. Medication Orders None recorded. Patient TargetsNo targets recorded. Patient InstructionsNo instructions recorded. Reason for Referral None Reported. Results Created Date Observation Date Name Description Value Unit Range Abnormal Flag Note LastModifiedBy Organization Detail LastModifiedTime 11/11/1911/10/2024 [facility]O LOGY surgical pathology SEE RESULT S BELOW CASE REPOR T: Surgi beltran Patho logy Repor t Case: [id number] Autho cintia maravilla Provi silvano: Brandan Appiah MD Colle cted: 11/10 1456 Order ing Locat ion: [place] Patho logy Recei freddie: 11/11 0458 Patho logis t: Jaret Cuenca MD Speci men: Endom etriu m, emb ----- ----- ----- ----- ----- ----- ----- [...] ng proce ss was perfo rmed at [facility] at[facility] site NMDP1 11. Digit al imagi ng was used in the diagn ostic asses sment of this case. GROSS DESCR IPTIO N: A. Endom etriu m. The speci men is label ed with the patie nt's name, sayda lorenz and TOBY. Recei freddie in forma janel is a 3.0 x 2.0 x 0.2 cm aggre gate of boyle-b rown tissu e mixed with blood clot. The entir e speci jagdish is submi tted in 2 casse ttes. Gross ed by Cony Bhatti Not Available [facility] (Lab) [address], [place], [address], 11/12/2024 11:41:01 11/11/19 25 11/12/2024 CERVI X/END OCERV IX cervical histology LSIL abnormal Not Available [facility] ([facility]) [address] , [place], [address], 11/12/2024 13:31:05 11/11/19 25 11/12/2024 CERVI X/END OCERV IX endocervical brushing histology Negati ve normal Not Available [facility] ([facility]) [address] , [place], [address], 11/12/2024 13:31:05 11/11/1911/12/2024 CERVI X/END OCERV IX results GROSS ING [...] 10 % neutr al buffe red forma janle on a soft ecc brush is a [...] CERVI X UTERI (R87. 619) Not Available [facility] ([facility]) [address] , [place], [address], 11/12/2024 13:31:05 10/23/19 25 10/22/2024 US, pelvi s No observ ation record ed. [email or web address] [place] [address], [place], [address], 10/22/2024 12:57:31 10/23/19 25 10/22/2024 US, trans vagin al No observ ation record ed. [email or web address] [place] [address], [place], [address], 10/22/2024 12:57:40 10/23/19 25 10/22/2024 US, pelvi s No observ ation record ed. NANETTE Caballero [address] [address], [place], [address], 10/26/2024 17:25:44 Result Notes None recorded. Procedures Surgical History Date Name Laterality Status Provider Name and Address Organization Details Recorded Time 11/11/19 25 Colposcopy completed LEATHA WHITLEY MD [address], [place], [address], [facility] 11/10/2024 14:55:42 11/11/19 25 Endometrial Biopsy completed LEATHA WHITLEY MD [address], [place], [address], [facility] 11/10/2024 14:57:50 11/11/19 25 Colposcopy completed Swetha Martino [facility] 11/16/2024 10:14:07 11/11/19 25 Colposcopy completed Swetha Martino [facility] 11/16/2024 10:15:05 10/06/19 25 Date of Last Pap Smear completed Mile Elise [facility] 10/28/2024 09:19:26 09/22/19 25 Dilation and Curettage completed Mary Guo [facility] 10/05/2024 09:43:54 12/20/19 23 Date of Last Mammogram completed [facility] 10/05/2024 09:43:54 02/18/19 15 Date of Last Colonoscopy completed Laura Vera [facility] 01/04/2025 11:43:23 LEEP completed [facility] 10/05/2024 09:43:54 Tubal Ligation completed [facility] 10/05/2024 09:43:54 Ovarian Cystectomy completed [facility] 10/05/2024 09:43:54 Imaging Results None recorded. Procedure Notes None recorded. Medical Equipment None Reported. Allergies Allergen ID Allergen Name Allergen Category Reaction Reaction Severity Criticality Documentation Date Start Date Code Code System Note Provider Name and Address Organization Details Recorded Time 32309 adhesive tape environme nt,medica tion Not available Not available Not available 10/05/2024 [facility] 09:44:10 91632 iodine medicatio n Not available Not available Not available 01/04/20252016 5933 RxNorm Stoma ch ache Not Available [employer] - prod 5 03:19:28 64161 latex environme nt,medica tion rash Not available [facility] 01/04/20252015 57796 91 RxNorm Adhes maria fernanda from tape Not Available [employer] - prod 5 03:19:28 Medications [...] Updated DateTime 11/16/2024 165.1 cm 34.1 kg/m2 00219.44 g 122/82 mm[Hg] Swetha Gunner [facility] 11/16/2024 10:12:35 Social History Question Answer Notes LastModified by Organizat ion Details LastModified Time Tobacco Smoking Status Never Smoker Mary Guo shannon, [facility] 10/05/2024 09:47:57 Do You Have An Advance Directive? No [email or web address] Information n ot available 10/05/2024 Are You Blind Or Do You Have Difficulty Seeing? No [email or web address] Information n ot available 10/05/2024 What Is Your Level Of Caffeine Consumption? Moderate [email or web address] Information not available 10/05/2024 How Much Tobacco Do You Chew? None [email or web address] Information not available 10/05/2024 In The 14 Days Before Symptom Onset, Have You Had Close Contact With A Laboratory-confirm ed COVID-19 While That Case Was Ill? No [email or web address] Information n ot available 10/05/2024 In The 14 Days Before Symptom Onset, Have You Had Close Contact With A Person Who Is Under Investigation For COVID-19 While That Person Was Ill? No [email or web address] Information not available 10/05/2024 Have You Been To An Area Known To Be High Risk For COVID-19? No [email or web address] Information not available 10/05/2024 Are You Deaf Or Do You Have Serious Difficulty Hearing? No [email or web address] Information not available 10/05/2024 What Type Of Diet Are You Following? REGULAR bvogdng85 Information n ot available 10/05/2024 What Is The Highest Grade Or Level Of School You Have Completed Or The Highest Degree You Have Received? FC18156-1 [email or web address] Information not available 10/05/2024 Are There Any Guns Present In Your Home? No [email or web address] Information not available 10/05/2024 Do You Use Protection During Sex? Usually [email or web address] Information not available 10/05/2024 Do You Use Your Seat Belt Or Car Seat Routinely? Yes [email or web address] Information not available 10/05/2024 Do You Have Smoke And Carbon Monoxide Detectors In Your Home? Yes Information not available 10/05/2024 How Much Tobacco Do You Smoke? No Information not available 10/05/2024 Do You Use Sunscreen Routinely? Yes [email or web address] Information not available 10/05/2024 Have You Used IV Drugs? No [email or web address] Information not available 10/05/2024 Sex: Unknown Functional Status Question Answer Note LastModified by Organizat ion Details LastModified Time Do you use any illicit or recreational drugs? No [email or web address] Information not available 10/05/2024 What is your level of alcohol consumption? Occasional [email or web address] Information not available 10/05/2024 Are you able to walk independently without assistance or assistive devices? 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 Occasional Information not available 10/05/2024 Mental Status Question Answer Note LastModified by Organization D etails LastModified Time Do you feel stressed (tense, restless, nervous, or anxious, or unable to sleep at night)? [id number] [email or web address] Information not available 10/05/2024 Family History Relationship Description Onset Age of this Age Resolved Age Notes LastModified by Organization Details LastModified Time Paternal Grandmother Heart disease Not available 2024 09:43:54 Maternal Grandmother Hypertensive disorder Not available 2024 09:43:54 Maternal Grandmother Heart disease [email or web address] Not available 2024 09:43:54 Medical History Condition [...] ICD10 Code Diagnosis IMO Codes Diagnosis Note [id number] LEATHA WHITLEY MD [place] [address] [place] [address] 10/22/2024 09:19:22 10/22/2024 10:03:43 Menorrhagia [id number] N92.0 [id number] LEATHA WHITLEY MD [place] [address] [address] 10/28/2024 09:08:53 10/28/2024 16:16:45 Menorrhagia 701128775 N92.0 7746747 - hx of heavy but regular cycles [...] of undetermined significance on cervical Papanicolaou smear 829578147 R87.610 R87.810 86078505 - longstandi ng hx of abnormal pap smears with hx of 2 LEEPs- discussed total hysterecto my including cervix due to hx of abnormal pap smears; will need to evaluate for malignancy with colpo prior to surgical decision making- colposcopy scheduled for 11/10 Cystocele 169543897 N81. 10 [id number] - patient reports hx of bladder prolapse- discussed possibilit y of combo case with Dr. Martin to treat prolapse at time of hysterecto my [id number] LEATHA WHITLEY MD [place] [address] [address] 11/10/2024 13:47:39 11/10/2024 15:01:19 Menorrhagia 838188212 N92.0 5969901 - hx of heavy but regular cycles [...] of undetermined significance on cervical Papanicolaou smear 094721847 R87.610 R87.810 61569258 - longstandi ng hx of abnormal pap smears with hx of 2 LEEPs- discussed total hysterecto my including cervix due to hx of abnormal pap smears; will need to evaluate for malignancy with colpo prior to surgical decision making- colposcopy performed today without issue- will follow up as results become available Cystocele [id number] N81. 10 3848860 - patient reports hx of bladder prolapse- discussed possibilit y of combo case with Dr. Martin to treat prolapse at time of hysterecto my [id number] Chas Weaver MD [place] [address] [address] 11/16/2024 09:39:04 11/17/2024 08:50:52 Menorrhagia 036755699 N92.0 [id number] This patient is a 44-year-ol d female [...] 30 minutes on her care in total. Health Concerns Section Related Observation LastModified by Organization Detai ls LastModified Time None Recorded Concern Status LastModified by Organization Details LastModified Time None Recorded Payers Encounter Date Sequence Insurance Name Policy Number Policy Cook Covered Member ID Cook Member ID Guarantor Name 11/16/2024 1 [facility] - [employer] - [employer] (PPO) [id number] Bhavani Guy [id number] Bhavani Guy Notes Date Note Type Note Provider Name and Address Organization Details Recorded Time 11/16/2024 text/html This patient is a 44-year-old [...] infection. Chas Weaver MD [address], [place], [address], [facility] 11/16/2024 17:58:37 OBGyn Episode No OBEpisode recorded.
--- OUTSIDE RECORDS SUMMARY | 2025-01-06 05:26 | XMS_ITS | Data Portability ---
Author Organization [facility] Address [address] [place] [address] Care Team Providers Care Equipment Washer Name Role Phone JASMIN SPICER Primary Care Provider Assessment No assessment recorded. Plan of Treatment Reminders Order Date Submit Date Provider Last Modified By Organization Details Last Modified Time Details Appointments Robotic TLH 2024 01:30P Kaushik WEAVER MD Not available Not available Not available SURG POST OP 2024 09:45A Kaushik WEAVER MD Not available Not available Not available Lab CT + NG + TV, RNA, unspecifi ed specimen 2024 025 [facility] (Lab), [address], [place], [address], 12/16/2024 13:26:39 Referral None recorded. Procedures None recorded. Surgeries robotic assisted hysterect tunde with salpingec gaye (SURG) 2024 025 [id number] [place] [facility], [address] [address], [place], [address], 11/17/2024 12:25:00 Imaging None recorded. Medication Orders hydrocodo ne 5 mg-acetam inophen 325 mg tablet 2024 025 [facility], [address] [facility], [place], [address], 01/04/2025 11:59:10 tranexami c acid 650 mg tablet 2024 025 [facility], [address] [place] [address], [address], 10/28/2024 16:02:13 ibuprofen 600 mg tablet 2024 025 [facility], [address] [place] [address], [address], 11/16/2024 10:20:23 oxycodone -acetamin ophen 5 mg-325 mg tablet 2024 025 [facility] [address], [address] [place] [address], [address], 11/16/2024 10:20:25 Xanax 0.5 mg tablet 2024 025 [facility] [address], [address] [place] [address], [address], 11/16/2024 10:20:22 ondansetr on 8 mg disintegr ating tablet 2024 025 [facility] [address], [address] [place] [address], [address], 11/16/2024 10:20:30 Patient TargetsNo targets recorded. Patient [...] Repor t Case: [id number] Autho rikeerthi g Provi silvano: Dermo dy, Blanquita , ANP, DICE MAKER Colle cted: 10/05 1507 Order ing Locat [...] ous Cells of Undet ermin ed Grace coreas (ASC- US). Trich omona twila crawley is prese nt. Elect reji rosario by [...] ry: Hormo emily (if appli cable ): SUGREFUGIO STED FOLLO W-UP: Follo w up as warra nted, based on curre nt guide lines and indiv idual patie nt consi derat ions. Not Available [facility] (Lab) [address], [place], [address], 10/07/2024 18:09:07 11/11/19 25 11/10/2024 SURGI BELTRAN PATHO LOGY surgical pathology SEE RESULT S BELOW CASE REPOR T: Surgi beltran Patho logy Repor t Case: [id number] Autho cintia maravilla Provi silvano: Brandan Appiah MD Colle cted: 11/10 1456 Order ing Locat ion: [place] Patho logy Recei freddie: 11/11 0458 Patho logis t: Jaret Cuenca MD Speci men: Lili faulkner emb ----- ----- ----- ----- ----- ----- ----- ----- ----- ----- ----- ----- ----- ----- ----- ----- ----- ---- FINAL DIAGN OSIS: Endokaushik etaliya faulkner, biops y: -Diso rdere d proli ferat maria fernanda lili heck m. -No endom etria l hyper plasi a or malig nant tumor ident ified . Elect reji rosario by Jaret Cuenca MD on 2024 at 1031 CDT ----- ----- ----- ----- ----- ----- ----- ----- ----- ----- ----- ----- ----- ----- ----- ----- ----- ---- CLINI BELTRAN INFOR MATIO N: Thick ened Endom etria l Linclari g MICRO SCOPI C DESCR IPTIO N: A micro scopi c exami natio n was perfo rmed. A porti on of the testi ng proce ss was perfo rmed at [facility] at[facility] site NMDP1 11. Digit al imagi ng was used in the diagn ostic asses sment of this case. GROSS DESCR IPTIO N: A. Endom etriu m. The speci men is label ed with the patie nt's name, sayda mccoy cs and EMB. Recei freddie in forma janel is a 3.0 x 2.0 x 0.2 cm aggre gate of boyle-b rown tissu e mixed with blood clot. The entir e speci men is submi tted in 2 casse ttes. Gross ed by Cony Bhatti Not Available [facility] (Lab) [address], [place], [address], 11/12/2024 11:41:01 11/11/1911/12/2024 CERVI X/END OCERV IX cervical histology LSIL abnormal Not Available [facility] [employer] ([employer]) [address], [place], [address], 11/12/2024 13:31:05 11/11/1911/12/2024 CERVI X/END OCERV IX endocervical brushing histology Negati ve normal Not Available [facility] [employer] ([employer]) [address], [place], [address], 11/12/2024 13:31:05 11/11/1911/12/2024 CERVI X/END OCERV IX [...] CERVI X UTERI (R87. 619) Not Available [facility] ([facility]) [address], [place], [address], 11/12/2024 13:31:05 12/16/1912/15/2024 CT/GC AND TRICH OMONA S VAGIN COSMO (RRNA ), URINE chlamydia trachomatis, PCR Negati ve negati ve Not Available [facility] (Lab) [address], [place], [address], 12/16/2024 13:26:39 12/16/1912/15/2024 CT/GC AND TRICH OMONA S VAGIN COSMO (RRNA ), URINE neisseria gonorrhoeae, PCR Negati ve negati ve Not Available [facility] (Lab) [address], [place], [address], 12/16/2024 13:26:39 10/28/20 25 12/15/2024 CT/GC AND TRICH OMONA S VAGIN COSMO (RRNA ), URINE trichomonas vaginalis ribosomal RNA (rrna) Negati ve negati ve 49_CL _SOUR CETVG : Urine - Bladd er Not Available [facility] (Lab) [address], [place], [address], 12/16/2024 13:26:39 10/23/19 25 10/22/2024 US, pelvi s No observ ation record ed. [email or web address] [place] [address], [place], [address], 10/22/2024 12:57:31 10/23/19 25 10/22/2024 US, trans vagin al No observ ation record ed. [email or web address] [place] [address], [place], [address], 10/22/2024 12:57:40 10/23/19 25 10/22/2024 US, pelvi s No observ ation record ed. NANETTE Caballero [address] [place] [address], [place], [address], 10/26/2024 17:25:44 Result Notes None recorded. Procedures Surgical History Date Name Laterality Status Provider Name and Address Organization Details Recorded Time 11/11/19 25 Colposcopy completed LEATHA WHITLEY MD [address], [place], [address], [facility] 11/10/2024 14:55:42 11/11/19 25 Endometrial Biopsy completed LEATHA WHITLEY MD [address], [place], [address], [facility] 11/10/2024 14:57:50 11/11/19 25 Colposcopy completed Swehta Martino [facility] 11/16/2024 10:14:07 11/11/19 25 Colposcopy completed Swetha Martino [facility] 11/16/2024 10:15:05 10/06/19 25 Date of Last Pap Smear completed Mile Moyajc [facility] 10/28/2024 09:19:26 09/22/19 25 Dilation and Curettage completed [facility] 10/05/2024 09:43:54 12/20/19 23 Date of Last Mammogram completed [facility] 10/05/2024 09:43:54 02/18/19 15 Date of Last Colonoscopy completed Laura Jody [facility] 01/04/2025 11:43:23 LEEP completed [facility] 10/05/2024 09:43:54 Tubal Ligation completed [facility] 10/05/2024 09:43:54 Ovarian Cystectomy completed [facility] 10/05/2024 09:43:54 Imaging Results None recorded. Procedure Notes None recorded. Medical Equipment None Reported. Allergies Allergen ID Allergen Name Allergen Category Reaction Reaction Severity Criticality Documentation Date Start Date Code Code System Note Provider Name and Address Organization Details Recorded Time 29345 adhesive tape environme nt,medica tion Not available Not available Not available 10/05/2024 [facility] 5 09:44:10 27133 iodine medicatio n Not available Not available Not available 01/04/20252016 5933 RxNorm Stoma ch ache Not Available [employer] - prod 5 03:19:28 46493 latex environme nt,medica tion rash Not available high 01/04/20252015 88992 91 RxNorm Adhes maria fernanda from tape Not Available [employer] - prod 5 03:19:28 Medications [...] Updated DateTime 10/28/2024 165.1 cm 33.8 kg/m2 22532.25 g 109/75 mm[Hg] [facility] 10/28/2024 09:18:41 Date Recorded Body height Body mass index (BMI) Body weight Systolic And Diastolic Provider Name and Address Organization Details Last Updated DateTime 11/10/2024 165.1 cm 33.1 kg/m2 39678.88 g 110/76 mm[Hg] [facility] 11/10/2024 14:38:35 Date Recorded Body height Body mass index (BMI) Body weight Systolic And Diastolic Provider Name and Address Organization Details Last Updated DateTime 11/16/2024 165.1 cm 34.1 kg/m2 96345.44 g 122/82 mm[Hg] Swetha Martino [facility] 11/16/2024 10:12:35 Date Recorded Body height Body mass index (BMI) Body weight Systolic And Diastolic Provider Name and Address Organization Details Last Updated DateTime 12/15/2024 165.1 cm 33.4 kg/m2 22493.35 g 121/85 mm[Hg] [facility] 12/15/2024 09:35:50 Date Recorded Body height Body mass index (BMI) Body weight Systolic And Diastolic Provider Name and Address Organization Details Last Updated DateTime 01/04/2025 165.1 cm 32.8 kg/m2 27760.7 g 121/83 mm[Hg] [facility] 01/04/2025 11:43:37 Social History Question Answer Notes LastModified by Organizat ion Details LastModified Time Tobacco Smoking Status Never Smoker Mary ortega [facility] 10/05/2024 09:47:57 Do You Have An Advance Directive? No Information n ot available 10/05/2024 Are You Blind Or Do You Have Difficulty Seeing? No [email or web address] Information n ot available 10/05/2024 What Is Your Level Of Caffeine Consumption? Moderate [email or web address] Information not available 10/05/2024 How Much Tobacco Do You Chew? None [email or web address] Information not available 10/05/2024 In The 14 Days Before Symptom Onset, Have You Had Close Contact With A Laboratory-confirm ed COVID-19 While That Case Was Ill? No [email or web address] Information n ot available 10/05/2024 In The 14 Days Before Symptom Onset, Have You Had Close Contact With A Person Who Is Under Investigation For COVID-19 While That Person Was Ill? No [email or web address] Information not available 10/05/2024 Have You Been To An Area Known To Be High Risk For COVID-19? No [email or web address] Information not available 10/05/2024 Are You Deaf Or Do You Have Serious Difficulty Hearing? No [email or web address] Information not available 10/05/2024 What Type Of Diet Are You Following? REGULAR [email or web address] Information n ot available 10/05/2024 What Is The Highest Grade Or Level Of School You Have Completed Or The Highest Degree You Have Received? YE09288-1 [email or web address] Information not available 10/05/2024 Are There Any Guns Present In Your Home? No [email or web address] Information not available 10/05/2024 Do You Use Protection During Sex? Usually [email or web address] Information not available 10/05/2024 Do You Use Your Seat Belt Or Car Seat Routinely? Yes [email or web address] Information not available 10/05/2024 Do You Have Smoke And Carbon Monoxide Detectors In Your Home? Yes [email or web address] Information not available 10/05/2024 How Much Tobacco Do You Smoke? No Information not available 10/05/2024 Do You Use Sunscreen Routinely? Yes [email or web address] Information not available 10/05/2024 Have You Used IV Drugs? No [email or web address] Information not available 10/05/2024 Sex: Unknown Functional Status Question Answer Note LastModified by Organizat ion Details LastModified Time Do you use any illicit or recreational drugs? No [email or web address] Information not available 10/05/2024 What is your level of alcohol consumption? Occasional [email or web address] Information not available 10/05/2024 Are you able to walk independently without assistance or assistive devices? 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 Occasional Information not available 10/05/2024 Mental Status Question Answer Note LastModified by Organization D etails LastModified Time Do you feel stressed (tense, restless, nervous, or anxious, or unable to sleep at night)? [id number] [email or web address] Information not available 10/05/2024 Family History Relationship Description Onset Age of this Age Resolved Age Notes LastModified by Organization Details LastModified Time Paternal Grandmother Heart disease [email or web address] Not available 2024 09:43:54 Maternal Grandmother Hypertensive disorder [email or web address] Not available 2024 09:43:54 Maternal Grandmother Heart disease [email or web address] Not available 2024 09:43:54 Medical History Condition [...] ICD10 Code Diagnosis IMO Codes Diagnosis Note [id number] BLANQUITA CALLAHAN NP [place] [address] [address] 10/05/2024 09:18:52 10/05/2024 10:47:16 Menorrhagia 640442090 N92.0 [id number] Today we discussed multiple options for menorrhagi a including: IUDs, Patch, Ring, Pills, Nexplanon, Lysteda; Endometria l ablation (requires MD consult). We discussed if any are contraindi cated with her current health Hx.Pelvic ultrasound ordered for further evaluation .Patient interested in endometria l ablation and requested to meet with MD after ultrasound . Well woman health examination [id number] Z01.419 [id number] Annual gynecologi beltran exam performed. Patient will [...] mammogram- has mammogram scheduled for 04/15/2025 at [facility]; PCP ordered colon cancer screening - due next year for screening colonoscop y DEXA scan- n/a Pap smear- pap w/ HPV collected laboratory evaluation - PCP STI testing - declined [id number] LEATHA WHITLEY MD [place] [address] [address] 10/22/2024 09:19:22 10/22/2024 10:03:43 Menorrhagia 123475789 N92.0 [id number] LEATHA WHITLEY MD [place] [address] [address] 10/28/2024 09:08:53 10/28/2024 16:16:45 Menorrhagia 280370771 N92.0 7571631 - hx of heavy but regular cycles [...] of undetermined significance on cervical Papanicolaou smear 996668026 R87.610 R87.810 03564934 - longstandi ng hx of abnormal pap smears with hx of 2 LEEPs- discussed total hysterecto my including cervix due to hx of abnormal pap smears; will need to evaluate for malignancy with colpo prior to surgical decision making- colposcopy scheduled for 11/10 Cystocele 382832160 N81. 10 [id number] - patient reports hx of bladder prolapse- discussed possibilit y of combo case with Dr. Martin to treat prolapse at time of hysterecto my [id number] LEATHA WHITLEY MD [place] [address] [address] 11/10/2024 13:47:39 11/10/2024 15:01:19 Menorrhagia 181790803 N92.0 7558259 - hx of heavy but regular cycles [...] of undetermined significance on cervical Papanicolaou smear 044781037 R87.610 R87.810 10393305 - longstandi ng hx of abnormal pap smears with hx of 2 LEEPs- discussed total hysterecto my including cervix due to hx of abnormal pap smears; will need to evaluate for malignancy with colpo prior to surgical decision making- colposcopy performed today without issue- will follow up as results become available Cystocele 726009747 N81. 10 [id number] - patient reports hx of bladder prolapse- discussed possibilit y of combo case with Dr. Martin to treat prolapse at time of hysterecto my [id number] Chas Weaver MD [place] [address] [address] 11/16/2024 09:39:04 11/17/2024 08:50:52 Menorrhagia 337479498 N92.0 [id number] This patient is a 44-year-ol d female [...] 30 minutes on her care in total. [id number] BLANQUITA CALLAHAN NP [place] [address] [address] 12/15/2024 09:27:20 12/15/2024 09:45:39 Venereal disease screening [id number] Z11.3 760841 Urine sample collected for trichomona s MARIBEL. Patient finished antibiotic s as prescribed and denies symptoms/c oncerns.Di scussed the various types of STDs, related symptoms and the potential consequenc es (including effects on fertility) of STD infections . Reviewed ways to limit exposure and prevention techniques . [id number] Chas Weaver MD [place] [address] [address] 01/04/2025 10:26:38 01/04/2025 13:31:41 Postoperative pain 949522149 G89.18 738121 Menorrhagia 614609131 N9 2.0 [id number] This patient is a 44-year-ol d female with severe menorrhagi a. We agreed to perform robotic assisted hysterecto my with bilateral salpingect tunde. She understand s risks, benefits, and alternativ e. She has completed informed consent process is ready to proceed. Health Concerns Section Related Observation LastModified by Organization Detai ls LastModified Time None Recorded Concern Status LastModified by Organization Details LastModified Time None Recorded Advance Directives Directive N: Payers Insurance Date Sequence Insurance Name Policy Number Policy Cook Covered Member ID Cook Member ID Guarantor Name 01/05/2025 1 [facility] - [employer] (PPO) [id number] Bhavani Guy [id number] Bhavani Guy 01/03/2025 1 [employer] [id number] Bhavani Guy [id number] Bhavani Guy 01/03/2025 1 [employer] (PPO) [id number] Bhavani Guy [id number] Bhavani Guy Notes Date Note Type Note [...] UTIs. LEATHA WHITLEY MD [address], [place], [address], [facility] 10/28/2024 16:02:20 11/10/2024 text/html Patient presents for colposcopy and endometrial biopsy indicated for heavy menstrual bleeding and ASCUS +HPV pap smear. LEATHA WHITLEY MD [address], [place], [address], [facility] 11/10/2024 15:01:14 11/16/2024 text/html This patient [...] infection. Chas Weaver MD [address], [place], [address], [facility] 11/16/2024 17:58:37 12/15/2024 text/html 44 y/o female presents for MARIBEL for trichomonas. Laura ortega, [facility] 12/15/2024 09:49:05 01/04/2025 text/html This patient is a 44-year-old female with severe menorrhagia. We agreed to perform robotic assisted hysterectomy with bilateral salpingectomy. She understands risks, benefits, and alternative. She has completed informed consent process is ready to proceed. The patient understands the procedure. The procedure [...] infection. Chas Weaver MD [address], [place], [address], [facility] 01/04/2025 13:31:04 OBGyn Episode Ob Episode Information Episode Created Date Number of Fetuses Patient Bloodtype Patient rh Status Prepregnancy Weight lbs Domestic Partner Domestic Partner Phone Father Name Hoister Status 10/06/19 25 1 CLOSED Fetus Data First Name Last Name Admitted to NICU Weight (g) Sex Living Outcome Pediatric Complications Fetus ID Race Codes Race Delivery Type , Spontane ous 07786 Won Calculation Initial Won Date Initial Exam [...] Domestic Partner Domestic Partner Phone Father Name Hoister Status 10/06/19 25 1 CLOSED Fetus Data First Name Last Name Admitted to NICU Weight (g) Sex Living Outcome Pediatric Complications Fetus ID Race Codes Race Delivery Type , Spontane ous 38225 Won Calculation Initial Won Date Initial Exam [...] Domestic Partner Domestic Partner Phone Father Name Hoister Status 10/06/19 1 CLOSED Fetus Data First Name Last Name Admitted to NICU Weight (g) Sex Living Outcome Pediatric Complications Fetus ID Race Codes Race Delivery Type M Full Term 01487 Won Calculation Initial Won Date Initial Exam [...] Domestic Partner Domestic Partner Phone Father Name Hoister Status 10/06/19 1 CLOSED Fetus Data First Name Last Name Admitted to NICU Weight (g) Sex Living Outcome Pediatric Complications Fetus ID Race Codes Race Delivery Type M Full Term 49380 Own Calculation Initial Won Date Initial Exam Date [...] Domestic Partner Domestic Partner Phone Father Name Hoister Status 10/06/19 25 1 CLOSED Fetus Data First Name Last Name Admitted to NICU Weight (g) Sex Living Outcome Pediatric Complications Fetus ID Race Codes Race Delivery Type M Full Term 70795 Won Calculation Initial Won Date Initial Exam [...]
--- OUTSIDE RECORDS SUMMARY | 2025-01-06 05:26 | XMS_ITS | Continuity of Care Document ---
Author Organization [facility] Address [address] [place] [address] Care Team Providers Care Vessel Master Name Role Phone RIOSCITLALLIPHOEBEJASMIN Primary Care Provider Assessment No assessment recorded. Plan of Treatment Reminders Order Date Submit Date Provider Last Modified By Organization Details Last Modified Time Details Appointments Robotic TLH 2024 01:30P Rasheeda QUISPE MD Not available Not available Not available SURG POST OP 2024 09:45A Rasheeda QUISPE MD Not available Not available Not available Lab None recorded. Referral None recorded. Procedures None recorded. Surgeries None recorded. Imaging None recorded. Medication Orders hydrocodo ne 5 mg-acetam inophen 325 mg tablet 2024 025 [facility] [place], [address], 01/04/2025 11:59:10 Patient TargetsNo targets recorded. Patient InstructionsNo instructions recorded. Reason for Referral None Reported. Results Created Date Observation Date Name Description Value Unit Range Abnormal Flag Note LastModifiedBy Organization Detail LastModifiedTime 12/16/1912/15/2024 CT/GC AND TRICH OMONA S VAGIN COSMO (RRNA ), URINE chlamydia trachomatis, PCR Negati ve negati ve Not Available [facility] (Lab) [address] , [place], [address], 12/16/2024 13:26:39 12/16/1912/15/2024 CT/GC AND TRICH OMONA S VAGIN COSMO (RRNA ), URINE neisseria gonorrhoeae, PCR Negati ve negati ve Not Available [facility] (Lab) [address], [place], [address], 12/16/2024 13:26:39 12/16/19 25 12/15/2024 CT/GC AND TRICH OMONA S VAGIN COSMO (RRNA ), URINE trichomonas vaginalis ribosomal RNA (rrna) Negati ve negati ve 49_CL _SOUR CETVG : Urine - Bladd er Not Available [facility] (Lab) [address] [facility], [place], [address], 12/16/2024 13:26:39 Result Notes None recorded. Procedures Surgical History Date Name Laterality Status Provider Name and Address Organization Details Recorded Time 11/11/19 25 Colposcopy completed LEATHA WHITLEY MD [address], [place], [address], [facility] 11/10/2024 14:55:42 11/11/19 25 Endometrial Biopsy completed LEATHA WHITLEY MD [address], [place], [address], [facility] 11/10/2024 14:57:50 11/11/19 25 Colposcopy completed Swetha [facility] 11/16/2024 10:14:07 11/11/19 25 Colposcopy completed Swetha Martino [facility] 11/16/2024 10:15:05 10/06/19 25 Date of Last Pap Smear completed Mile Elise [facility] 10/28/2024 09:19:26 09/22/19 25 Dilation and Curettage completed [facility] 10/05/2024 09:43:54 12/20/19 23 Date of Last Mammogram completed Mary Guo [facility] 10/05/2024 09:43:54 02/18/19 15 Date of Last Colonoscopy completed Laura Vera [facility] 01/04/2025 11:43:23 LEEP completed [facility] 10/05/2024 09:43:54 Tubal Ligation completed [facility] 10/05/2024 09:43:54 Ovarian Cystectomy completed [facility] 10/05/2024 09:43:54 Imaging Results None recorded. Procedure Notes None recorded. Medical Equipment None Reported. Allergies Allergen ID Allergen Name Allergen Category Reaction Reaction Severity Criticality Documentation Date Start Date Code Code System Note Provider Name and Address Organization Details Recorded Time 17264 adhesive tape environme nt,medica tion Not available Not available Not available 10/05/2024 [facility] 5 09:44:10 30624 iodine medicatio n Not available Not available Not available 01/04/20252016 5933 RxNorm Stoma ch ache Not Available [employer] - prod 5 03:19:28 56464 latex environme nt,medica tion rash Not available [facility] 01/04/20252015 21178 91 RxNorm Adhes maria fernanda from tape Not Available [employer] - prod 5 03:19:28 Medications [...] Updated DateTime 01/04/2025 165.1 cm 32.8 kg/m2 57604.7 g 121/83 mm[Hg] Laura Vera [facility] 01/04/2025 11:43:37 Social History Question Answer Notes LastModified by Organizat ion Details LastModified Time Tobacco Smoking Status Never Smoker Mary Guo [facility] 10/05/2024 09:47:57 Do You Have An Advance Directive? No [email or web address] Information n ot available 10/05/2024 Are You Blind Or Do You Have Difficulty Seeing? No [email or web address] Information n ot available 10/05/2024 What Is Your Level Of Caffeine Consumption? Moderate Information not available 10/05/2024 How Much Tobacco Do You Chew? None [email or web address] Information not available 10/05/2024 In The 14 Days Before Symptom Onset, Have You Had Close Contact With A Laboratory-confirm ed COVID-19 While That Case Was Ill? No Information n ot available 10/05/2024 In The 14 Days Before Symptom Onset, Have You Had Close Contact With A Person Who Is Under Investigation For COVID-19 While That Person Was Ill? No [email or web address] Information not available 10/05/2024 Have You Been To An Area Known To Be High Risk For COVID-19? No [email or web address] Information not available 10/05/2024 Are You Deaf Or Do You Have Serious Difficulty Hearing? No Information not available 10/05/2024 What Type Of Diet Are You Following? REGULAR [email or web address] Information n ot available 10/05/2024 What Is The Highest Grade Or Level Of School You Have Completed Or The Highest Degree You Have Received? [id number] [email or web address] Information not available 10/05/2024 Are There Any Guns Present In Your Home? No Information not available 10/05/2024 Do You Use Protection During Sex? Usually [email or web address] Information not available 10/05/2024 Do You Use Your Seat Belt Or Car Seat Routinely? Yes [email or web address] Information not available 10/05/2024 Do You Have Smoke And Carbon Monoxide Detectors In Your Home? Yes [email or web address] Information not available 10/05/2024 How Much Tobacco Do You Smoke? No [email or web address] Information not available 10/05/2024 Do You Use Sunscreen Routinely? Yes Information not available 10/05/2024 Have You Used IV Drugs? No [email or web address] Information not available 10/05/2024 Sex: Unknown Functional Status Question Answer Note LastModified by Organizat ion Details LastModified Time Do you use any illicit or recreational drugs? No [email or web address] Information not available 10/05/2024 What is your level of alcohol consumption? Occasional [email or web address] Information not available 10/05/2024 Are you able to walk independently without assistance or assistive devices? 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 Occasional [email or web address] Information not available 10/05/2024 Mental Status Question Answer Note LastModified by Organization D etails LastModified Time Do you feel stressed (tense, restless, nervous, or anxious, or unable to sleep at night)? [id number] [email or web address] Information not available 10/05/2024 Family History Relationship Description Onset Age of this Age Resolved Age Notes LastModified by Organization Details LastModified Time Paternal Grandmother Heart disease [email or web address] Not available 2024 09:43:54 Maternal Grandmother Hypertensive disorder [email or web address] Not available 2024 09:43:54 Maternal Grandmother Heart disease Not available 2024 09:43:54 Medical History Condition Response Allergies (Food, seasonal, environmental ) N Other N Drug/Latex Allergies/Reactions N Blood Transfusion N Breast Cancer N Dermatologic Disorders N Lung Disease N Defects or Inherited Disease N Breast Problem N Gestational Diabetes N Hematologic disorders N Anesthesia Complications N History of STI Y Deep Vein Thrombosis N Polycystic ovary syndrome Y Anxiety Disorder N Autoimmune disease N Arthritis N Polyps N Infertility N Acid Reflux (GERD) N History of abnormal pap Y Cancer N Varicosities N Stroke N Neurologic/Epilepsy Y Endometriosis N High Cholesterol N Fibromyalgia N Headaches Y Kidney Disease N Heart Problems N Thyroid Problems N Kidney or Bladder Problems N GI Problems N Eating Disorder [...] ICD10 Code Diagnosis IMO Codes Diagnosis Note [id number] JULISSA CALLAHAN NP [facility] [address] [address] 12/15/2024 09:27:20 12/15/2024 09:45:39 Venereal disease screening [id number] Z11.3 676211 Urine sample collected for trichomona s MARIBEL. Patient finished antibiotic s as prescribed and denies symptoms/c oncerns.Di scussed the various types of STDs, related symptoms and the potential consequenc es (including effects on fertility) of STD infections . Reviewed ways to limit exposure and prevention techniques . [id number] Chas Quispe MD [facility] [address] [address] 01/04/2025 10:26:38 01/04/2025 13:31:41 Postoperative pain [id number] G89.18 514806 Menorrhagia [id number] N9 2.0 [id number] This patient is a 44-year-ol d female [...] Member ID Cook Member ID Guarantor Name 01/04/2025 1 [facility] - S&S [facility] STRATEGIES - CIG[employer] (O) [id number] Bhavani [id number] Bhavani Guy Notes Date Note Type Note Provider Name and Address Organization Details Recorded Time 01/04/2025 text/html This patient is a 44-year-old [...] is risk of hemorrhage and infection. Chas Quispe MD [address], [place], [address], [facility] 01/04/2025 13:31:04 OBGyn Episode No OBEpisode recorded.
--- OUTSIDE RECORDS SUMMARY | 2025-01-06 05:26 | XMS_ITS | Continuity of Care Document ---
Author Organization [facility] Address [address] [place] [address] Care Team Providers Care Bowling Alley Floors Installer Name Role Phone PHOEBE SPICERSEY Primary Care Provider Assessment No assessment recorded. [...] TV, RNA, unspecifi ed specimen 2024 025 [facility] (Lab), [address] [facility], [place], [address], 12/16/2024 13:26:39 Referral None recorded. Procedures None recorded. Surgeries None recorded. Imaging None recorded. Medication Orders None recorded. Patient TargetsNo targets recorded. Patient InstructionsNo instructions recorded. Reason for Referral None Reported. Results Created Date Observation Date Name Description Value Unit Range Abnormal Flag Note LastModifiedBy Organization Detail LastModifiedTime 12/16/1912/15/2024 CT/GC AND TRICH OMONA S VAGIN COSMO (RRNA ), URINE chlamydia trachomatis, PCR Negati ve negati ve Not Available [facility] (Lab) [address] , [place], [address], 12/16/2024 13:26:39 12/16/19 25 12/15/2024 CT/GC AND TRICH OMONA S VAGIN COSMO (RRNA ), URINE neisseria gonorrhoeae, PCR Negati ve negati ve Not Available [facility] (Lab) [address] [facility], [place], [address], 12/16/2024 13:26:39 12/16/19 25 12/15/2024 CT/GC AND TRICH OMONA S VAGIN COSMO (RRNA ), URINE trichomonas vaginalis ribosomal RNA (rrna) Negati ve negati ve 49_CL _SOUR CETVG : Urine - Bladd er Not Available [facility] (Lab) [address] [facility], [place], [address], 12/16/2024 13:26:39 Result Notes None recorded. Procedures Surgical History Date Name Laterality Status Provider Name and Address Organization Details Recorded Time 11/11/19 25 Colposcopy completed LEATHA WHITLEY MD [address], [place], [address], [facility] 11/10/2024 14:55:42 11/11/19 25 Endometrial Biopsy completed LEATHA WHITLEY MD [address], [place], [address], [facility] 11/10/2024 14:57:50 11/11/19 25 Colposcopy completed Swetha [facility] 11/16/2024 10:14:07 11/11/19 25 Colposcopy completed Swetha Martino [facility] 11/16/2024 10:15:05 10/06/19 25 Date of Last Pap Smear completed Mile Elise [facility] 10/28/2024 09:19:26 09/22/19 25 Dilation and Curettage [facility] 10/05/2024 09:43:54 12/20/19 23 Date of Last Mammogram completed [facility] 10/05/2024 09:43:54 02/18/19 15 Date of Last Colonoscopy completed Laura Vera [facility] 01/04/2025 11:43:23 LEEP completed [facility] 10/05/2024 09:43:54 Tubal Ligation completed [facility] 10/05/2024 09:43:54 Ovarian Cystectomy completed [facility] 10/05/2024 09:43:54 Imaging Results None recorded. Procedure Notes None recorded. Medical Equipment None Reported. Allergies Allergen ID Allergen Name Allergen Category Reaction Reaction Severity Criticality Documentation Date Start Date Code Code System Note Provider Name and Address Organization Details Recorded Time 67819 adhesive tape environme nt,medica tion Not available Not available Not available 10/05/2024 [facility] 5 09:44:10 95742 iodine medicatio n Not available Not available Not available 01/04/20252016 5933 RxNorm Stoma ch ache Not Available [employer] - prod 5 03:19:28 53312 latex environme nt,medica tion rash Not available [facility] 01/04/20252015 64427 91 RxNorm Adhes maria fernanda from tape Not Available [employer] - prod 5 03:19:28 Medications [...] Updated DateTime 12/15/2024 165.1 cm 33.4 kg/m2 01456.35 g 121/85 mm[Hg] Laura Vera [facility] 12/15/2024 09:35:50 Social History Question Answer Notes LastModified by Organizat ion Details LastModified Time Tobacco Smoking Status Never Smoker Mary Guo [facility] 10/05/2024 09:47:57 Do You Have An Advance Directive? No [email or web address] Information n ot available 10/05/2024 Are You Blind Or Do You Have Difficulty Seeing? No [email or web address] Information n ot available 10/05/2024 What Is Your Level Of Caffeine Consumption? Moderate [email or web address] Information not available 10/05/2024 How Much Tobacco Do You Chew? None [email or web address] Information not available 10/05/2024 In The 14 Days Before Symptom Onset, Have You Had Close Contact With A Laboratory-confirm ed COVID-19 While That Case Was Ill? No [email or web address] Information n ot available 10/05/2024 In The 14 Days Before Symptom Onset, Have You Had Close Contact With A Person Who Is Under Investigation For COVID-19 While That Person Was Ill? No [email or web address] Information not available 10/05/2024 Have You Been To An Area Known To Be High Risk For COVID-19? No [email or web address] Information not available 10/05/2024 Are You Deaf Or Do You Have Serious Difficulty Hearing? No [email or web address] Information not available 10/05/2024 What Type Of Diet Are You Following? REGULAR Information n ot available 10/05/2024 What Is The Highest Grade Or Level Of School You Have Completed Or The Highest Degree You Have Received? [id number] Information not available 10/05/2024 Are There Any Guns Present In Your Home? No [email or web address] Information not available 10/05/2024 Do You Use Protection During Sex? Usually [email or web address] Information not available 10/05/2024 Do You Use Your Seat Belt Or Car Seat Routinely? Yes [email or web address] Information not available 10/05/2024 Do You Have Smoke And Carbon Monoxide Detectors In Your Home? Yes [email or web address] Information not available 10/05/2024 How Much Tobacco Do You Smoke? No [email or web address] Information not available 10/05/2024 Do You Use Sunscreen Routinely? Yes [email or web address] Information not available 10/05/2024 Have You Used IV Drugs? No [email or web address] Information not available 10/05/2024 Sex: Unknown Functional Status Question Answer Note LastModified by Organizat ion Details LastModified Time Do you use any illicit or recreational drugs? No [email or web address] Information not available 10/05/2024 What is your level of alcohol consumption? Occasional [email or web address] Information not available 10/05/2024 Are you able to walk independently without assistance or assistive devices? 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 Occasional [email or web address] Information not available 10/05/2024 Mental Status Question Answer Note LastModified by Organization D etails LastModified Time Do you feel stressed (tense, restless, nervous, or anxious, or unable to sleep at night)? [id number] [email or web address] Information not available 10/05/2024 Family History Relationship Description Onset Age of this Age Resolved Age Notes LastModified by Organization Details LastModified Time Paternal Grandmother Heart disease [email or web address] Not available 2024 09:43:54 Maternal Grandmother Hypertensive disorder Not available 2024 09:43:54 Maternal Grandmother Heart disease [email or web address] Not available 2024 09:43:54 Medical History Condition [...] ICD10 Code Diagnosis IMO Codes Diagnosis Note [id number] Cahs Quispe MD [facility] [address] [address] 11/16/2024 09:39:04 11/17/2024 08:50:52 Menorrhagia [id number] N92.0 [id number] This patient is a 44-year-ol d female [...] 30 minutes on her care in total. [id number] JULISSA CALLAHAN NP [facility] [address] [address] 12/15/2024 09:27:20 12/15/2024 09:45:39 Venereal disease screening [id number] Z11.3 383835 Urine sample collected for trichomona s MARIBEL. [...] Member ID Cook Member ID Guarantor Name 12/15/2024 1 [facility] - S&S [facility] STRATEGIES - [employer]IG[employer] (PPO) [id number] Bhavani Guy [id number] Bhavani Guy Notes Date Note Type Note Provider Name and Address Organization Details Recorded Time 12/15/2024 text/html 44 y/o female presents for MARIBEL for trichomonas. Laura Vera [facility] 12/15/2024 09:49:05 OBGyn Episode No OBEpisode recorded.
[2025-01-06] MEDS: ACETAMINOPHEN 500 MG TABLET 1000 MG PO ×3 (11:45→23:38)
[2025-01-06] MEDS: LACTATED RINGERS 1,000 ML 30 ML IV CONT ×2 (11:55→15:24)
[2025-01-06] MEDS: KETOROLAC 15 MG/ML VIAL (*BKC) IV PUSH (11:57)
[2025-01-06 12:10] LABS: BEDSIDEPREGUCG Negative (Negative)
--- NOTE | 2025-01-06 12:37 | WPDHPUPDATE1 ---
History and Physical Update Update Date/Time: 01/06/25 12:37 History and Physical has been reviewed, including an updated exam of the patient. There are NO changes in the patient's condition. Risks, benefits, and alternatives have been discussed and questions answered. Patient agrees to proceed with procedure.
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
[2025-01-06] MEDS: ceFAZolin 2 GM in SODIUM CHLORIDE 0.9% IV 50 ML 100 ML IVPB (13:14)
--- NOTE | 2025-01-06 14:50 | S_PTH ---
PATIENT: Bhavani Guy LOC: [facility] U#:[id number] AGE/SX: 44/F ROOM: RE01/06/[address]: Chas Weaver MD : 1980 BED: DIS: 01/07/2025 SPEC #: [id number] RECD: 01/07/25 09:41 STATUS: KULDIP REAnni #: [id number] JANET: 01/06/25 14:[address]: Chas Weaver DEPT: [facility] Surgical RECD BY: Yudi Eason ENTERED: 01/07/25 09:41 SP TYPE: Surgical OTHR DR: Ale Burden, PA Tissues: A - Uterus Procedures: Hematoxylin and Eosin Stain Gross and Microscopic Level 5
--- NOTE | 2025-01-06 15:26 | W.PM.PROC2 ---
Procedure Note - Detailed Date of Procedure 01/06/25 Pre-op Diagnosis menorrhaghia with regular cycle Post-op Diagnosis Same Procedure Performed Robot assisted Total hysterectomy with bilateral salpingectomy. Surgeon Chas Weaver MD Anesthesia General Indications heavy vaginal bleeding, pelvic pain Findings Mildly enlarged uterus, normal-appearing fallopian tubes and ovaries. Description of Procedure This patient was taken to the operating room. She was prepped and draped in the dorsal lithotomy position after induction of general anesthesia. The uterine manipulator and Rafita cup were placed. This was done with a speculum and tenaculum. The speculum was placed. The cervix was grasped with a tenaculum. The stay sutures were placed at 3 and 9:00 a.m.. The stay sutures of 0 Vicryl were tied to the appropriately Size scope after it was slipped around the cervix.. The tip of the SHAKIRA manipulator was placed in the intrauterine cavity. The cup was slid into place around the cervix and into the fornices. It was locked into place. The sutures were then wrapped around the handle and tied under tension. A 8 mm skin incision was made in the left upper quadrant the abdomen. a 5 mm Visiport trocar was inserted into abdominal cavity and pneumoperitoneum was achieved. A 8 mm supraumbilical incision was made and a 8 mm trocar was inserted into the intrauterine cavity under direct visualization of the scope. an 8 mm incision was made in the right upper quadrant of the abdomen and an 8 mm robotic trocar was placed the inter uterine cavity under direct visualization the scope. An 11 mm trocar was inserted in the right upper quadrant of the abdomen rectal is a cystoscope after an incision was made there as well. The robot was docked. Electronic Orientation of the robot was performed. Bilateral ureteral lysis was performed. This was done from the pelvic brim down to the uterine artery. This was done with careful dissection using sharp and blunt dissection. The fallopian tubes were removed bilaterally. The mesosalpinx around the fallopian tubes were cauterized transected with LigaSure cautery. This was done in a bilateral fashion from the ovary to the uterine cornua. The fallopian tube was transected at the uterine cornu and amputated. The tube was taken out the left lower quadrant trocar site. In a stepwise fashion along the lateral aspects of the uterus the round ligament and broad ligaments were cauterized transected down to the level of the uterine arteries. A bladder flap was created in the bladder was moved distally to the end of the cervix and over the Rafita cup. The bilateral uterine arteries were cauterized and transected. Colpotomy was then performed. In a circumferential fashion the vagina was transected using unipolar cautery. The incision was made down on the Rafita cup. The uterus and cervix were taken out through the vagina. A pneumo occluder was placed in the vagina. The vaginal cuff was closed with a 0 V lock suture in a running fashion. The pelvis was irrigated with copious amounts antibiotic irrigation. The ureters were again examined and found to be intact and flowing freely under the uterine arteries into the bladder. The bladder was intact. It was examined directly. Cystoscopy was performed after administration of methylene blue. The cystoscope was inserted. Bladder was distended with fluid. The ureteric meatus was observed bilaterally. Blue fluid was seen to egress bilaterally. The bladder was drained and the cystoscope was withdrawn. The vagina was irrigated with Betadine solution after removal of the Pneumo occluder. the trocars were removed after the robot was undocked. The skin was closed with subacute or Dermabond. The patient was taken to recovery room. She was stable condition. Sponge lap and needle counts were correct x2. Estimated Blood Loss 125 Urine Output 800 Drains Yes Packing No Pathology Yes Complications No immediate complications Condition Stable Disposition Floor
[2025-01-06] MEDS: DEXTROSE 5%/0.45% SOD CHL 1,000 ML 125 ML IV CONT (17:20)
[2025-01-06] MEDS: KETOROLAC 30 MG/ML VIAL (*BKC) IV PUSH ×2 (17:20→23:37)
[2025-01-06] MEDS: oxyCODONE HCL (*CRX) 5 MG TAB IR PO ×2 (17:44→22:05)
[2025-01-06] MEDS: SIMETHICONE 80 MG TAB.CHEW PO (17:44)
[2025-01-06] MEDS: DOCUSATE SODIUM 100 MG CAPSULE PO (22:03)
[2025-01-07] MEDS: oxyCODONE HCL (*CRX) 5 MG TAB IR PO (03:15)
[2025-01-07 04:34] VITALS: BP 106/70; PULSE 74; RESP 18; TEMP 36.8; O2SAT 98
[2025-01-07] MEDS: KETOROLAC 30 MG/ML VIAL (*BKC) IV PUSH (05:20)
[2025-01-07] MEDS: ACETAMINOPHEN 500 MG TABLET 1000 MG PO (05:21)
[2025-01-07 08:40] VITALS: BP 98/68; PULSE 72; RESP 16; TEMP 36.9; O2SAT 97
--- NOTE | 2025-01-07 08:44 | PM.GYNPNOP ---
[employer] - A/P Postoperative Procedures: Procedures Operation Date: 01/06/25 13:30 Actual Procedure Side Surgeon p Robotic Assisted Hysterectomy with Bilateral Salpingectomy, Cystoscopy Bilateral Chas Weaver MD Postoperative day: 1 Postoperative status: doing well Postoperative plan: see orders Time Spent With Patient Time: Total time spent is greater than 50% in coordination of care (as documented) at patient's floor/unit and/or counseling patient: Time with patient: less than 15 minutes [employer]- PN:Subj Post-Op Subjective Date/time seen: 01/07/25 08:44 Subjective: patient reports feeling better, patient has no complaints and pain is well controlled Exam Const: General: healthy appearing, comfortable and no acute distress Resp: Auscultation: clear to auscultation bilaterally, no rales, no rhonchi and no wheezes Cardio: Rate: regular rate Heart sounds: no click, no murmurs and no rubs GI: Inspection: non-distended Auscultation: normal bowel sounds Extrem: General: normal to inspection, no pedal edema and no calf tenderness [employer] - PN: Obj Data Vital Signs Vital Signs: Vital Signs - 24 hr 01/06/25 11:30 01/06/25 15:24 01/06/25 15:35 Temperature 97.2 F L 97.4 F L Pulse Rate 78 77 79 Respiratory Rate 18 11 L 13 Blood Pressure 136/90 146/88 H 123/73 Pulse Oximetry 97 100 100 Oxygen Delivery Room Air Simple Face Mask Simple Face Mask Oxygen Flow Rate 8 8 01/06/25 15:50 01/06/25 16:05 01/06/25 16:20 Temperature Pulse Rate 71 76 65 Respiratory Rate 21 H 12 14 Blood Pressure 134/84 130/84 127/78 Pulse Oximetry 100 100 99 Oxygen Delivery Simple Face Mask Room Air Room Air Oxygen Flow Rate 8 01/06/25 16:27 01/06/25 16:43 01/06/25 16:43 Temperature 98.6 F Pulse Rate 70 65 Respiratory Rate 10 L 16 Blood Pressure 134/80 133/85 Pulse Oximetry 100 100 Oxygen Delivery Room Air Room Air Oxygen Flow Rate 01/06/25 19:15 01/06/25 19:15 01/06/25 22:35 Temperature 97.8 F 98.1 F Pulse Rate 73 73 73 Respiratory Rate 16 16 17 Blood Pressure 121/83 113/69 Pulse Oximetry 99 99 98 Oxygen Delivery Room Air Oxygen Flow Rate 01/06/25 23:35 01/07/25 04:30 01/07/25 04:34 Temperature 98.3 F Pulse Rate 73 74 Respiratory Rate 17 18 Blood Pressure 106/70 Pulse Oximetry 98 98 Oxygen Delivery Room Air Room Air Oxygen Flow Rate Intake/Output Intake/Output: Intake & Output 01/04/25 01/05/25 01/06/25 01/07/25 23:59 23:59 23:59 23:59 Intake Total 50 240 Output Total 850 450 Balance -800 -210 Meds/Results Medications: Active Medications Generic Name Dose Route Start Last Admin Trade Name Freq PRN Reason Stop Dose Admin Acetaminophen 1,000 mg 01/06/25 18:00 01/07/25 05:21 Acetaminophen 500 Mg Tablet PO 1,000 mg Q6HR CAROLYN Administration Docusate Sodium 100 mg 01/06/25 21:00 01/06/25 22:03 Docusate Sodium 100 Mg Capsule PO 100 mg Q12HR CAROLYN Administration Hydroxyzine HCl 10 mg 01/06/25 16:28 Hydroxyzine Hcl 10 Mg Tablet PO TID PRN Anxiety Dextrose/Sodium Chloride 1,000 mls @ 125 mls/hr 01/06/25 16:28 01/06/25 17:20 Dextrose 5% Sodium Chloride 0.45% IV CONT 125 mls/hr .Q8H CAROLYN Administration Ibuprofen 600 mg 01/07/25 12:00 Ibuprofen 600 Mg Tablet PO Q6HR CAROLYN Lisinopril 40 mg 01/07/25 09:00 Lisinopril 20 Mg Tablet PO DAILY CAROLYN Miscellaneous Information 0 each 01/06/25 00:01 Liraglutide Nonform Can Pt Bring From Home Or Hold While Here? XX 02/05/25 00:00 CLARIFY CAROLYN Miscellaneous Information 0 each 01/06/25 00:01 Atomexetine Nonform Can Pt Bring From Home? XX 02/05/25 00:00 CLARIFY CAROLYN Naloxone HCl 0.1 mg 01/06/25 16:28 Naloxone Hcl 0.4 Mg/Ml Vial IV PUSH Q2M PRN Respiratory rate less than 10 Non-Formulary Medication 40 mg 01/07/25 09:00 Atomoxetine PO 02/06/25 08:59 DAILY CAROLYN Non-Formulary Medication 1.8 mg 01/06/25 16:28 Liraglutide SUB-Q 02/05/25 16:27 Q24H CAROLYN Ondansetron HCl 4 mg 01/06/25 16:28 Ondansetron Inj 4 Mg/2 Ml Vial IV PUSH Q6H PRN Nausea And Vomiting Oxycodone HCl 5 mg 01/06/25 16:28 01/07/25 03:15 Oxycodone Hcl (*Crx) 5 Mg Tab Ir PO 5 mg Q4H PRN Administration Pain Rated 4-6 Oxycodone HCl 10 mg 01/06/25 16:28 Oxycodone Hcl (*Crx) 5 Mg Tab Ir PO Q6H PRN Pain Rated 7-10 Rizatriptan Benzoate 10 mg 01/06/25 16:28 Rizatriptan Benzoate 10 Mg Odt PO Q2H PRN Migraine Headache Simethicone 80 mg 01/06/25 17:00 01/06/25 17:44 Simethicone 80 Mg Tab.Chew PO 80 mg TIDWM CAROLYN Administration Trazodone HCl 50 mg 01/06/25 16:28 Trazodone Hcl 50 Mg Tablet PO HS PRN Insomnia Labs Labs: Laboratory Results - last 24 hr 01/06/25 11:40 POC Urine HCG, Qual Negative
== END 2025-01-07 10:35 | disposition home or self-care (01) ==
LOC: ANHSURGERY 11:10 → ANHOB2 17:26
PROVIDERS: Anesthesiology; PCP Physician Assistant; Visit Provider Obstetrics & Gynecology
PROC: (CPT 58571; principal; 2025-01-06 13:30)
DX: N92.0 Excessive and frequent menstruation with regular cycle (principal); N88.8 Other specified noninflammatory disorders of cervix uteri; Z87.891 Personal history of nicotine dependence; E66.9 Obesity, unspecified; Z68.34 Body mass index [BMI] 34.0-34.9, adult
CPT/HCPCS: 58571; S2900; 88307; 99199; J0690; A9270; J1885; J2250; J3010; J7030; J7120; Q9968

== ENCOUNTER 2025-01-25 23:24 | Emergency (ER) | payer OTHER, BC, SELFPAY | END 2025-01-26 02:05 | disposition left against medical advice (07) | LOC: ANHED 01-26 01:57 | PROVIDERS: PCP Physician Assistant | DX: Z53.21 Procedure and treatment not carried out due to patient leaving prior to being seen by health care provider (principal) | CPT/HCPCS: 99199 ==